=== PATIENT | female | born 1955 | race Caucasian/White ===

== ENCOUNTER 2021-04-24 16:47 | Outpatient (CLI) | payer OTHER, SELFPAY ==
--- NOTE | ~2021-04-24 | DEXA_ITS ---
Bone Density Report Name: Joanna Magdaleno Age: 65 Sex: Female Ethnicity: White Date of : 1955 Indication: postmenopausal; parental hip fracture; height loss; prior fracture; hysterectomy; Referring Provider: Tamara Reeves Study: Bone densitometry was performed. Exam Date: April 24, 2021 Accession number: [id number] Bone Density: Region BMD T-score Z-score Classification AP Spine (L1-L4) 0.992 -0.5 1.3 Normal Femoral Neck (Left) 0.731 -1.1 0.4 Osteopenia Total Hip (Left) 0.887 -0.5 0.8 Normal Total Hip Bilateral Avg 0.875 -0.6 0.7 Normal Femoral Neck (Right) 0.675 -1.6 -0.1 Osteopenia Total Hip (Right) 0.861 -0.7 0.5 Normal World Health Organization criteria for BMD impression classify patients as: Normal (T-score at or above -1.0), Osteopenia (T-score between -1.0 and -2.5), or Osteoporosis (T-score at or below -2.5). 10-year Fracture Risk(1): Major Osteoporotic Fracture 27% Hip Fracture 1.6% Reported Risk Factors: [place] (), Neck BMD=0.675, BMI=27.4, previous fracture, parental fracture (1) FRAX(R) Version 3.08. Fracture probability calculated for an untreated patient. Fracture probability may be lower if the patient has received treatment. Clinical Information Provided by Patient: Has had a low trauma fracture Parent has had a hip fracture Has used the following medications: HRT (i.e. estrogen/hormone therapy), Vitamin D, Calcium Has the following medical conditions: Hysterectomy Patient maximum height was 69 Menopause Age: 40 Onset of menses at age 15 Number of children 3 Impression: The patient has low bone mass, based on the Right Femoral Neck T-score. The patient has an estimated ten-year risk of hip fracture of 1.6% and an estimated ten-year risk of major fracture of 27%, based on the WHO FRAX algorithm. The patient has risk factors, including: parental hip fracture, previous fracture. Discussion: BONE DENSITY IS LOW AT ONE OR MORE SKELETAL SITES. THE PATIENT'S BMD AND CLINICAL RISK FACTORS CONTRIBUTE TO THIS PATIENT'S INCREASED RISK OF FRACTURE. This patient's lowest T-score is low at one or more skeletal sites. It meets the World Health Organization's (WHO) criteria for ?low bone mass? (T-score between -1.0 and -2.5). The patient's 10-year risk of a major osteoporotic fracture as calculated by FRAX exceeds the threshold where pharmacological therapy is recommended by the National Osteoporosis Foundation (NOF). However, all treatment decisions require clinical judgment and consideration of individual patient factors, including patient preferences, comorbidities, previous drug use, risk factors not captured in the FRAX model (e.g., frailty, falls, vitamin D deficiency, increased bone turnover, interval significant decline in bone density) and possible under or over
== END 2021-04-24 16:48 | disposition home or self-care (01) ==
LOC: ANHIMG 16:52
PROVIDERS: PCP Internal Medicine; Visit Provider Nurse Practitioner
DX: Z13.820 Encounter for screening for osteoporosis (principal); M85.851 Other specified disorders of bone density and structure, right thigh; M85.852 Other specified disorders of bone density and structure, left thigh
CPT/HCPCS: 77080

== ENCOUNTER 2021-12-03 16:47 | Outpatient (CLI) | payer OTHER, SELFPAY ==
--- NOTE | ~2021-12-03 | MM_ITS ---
EXAMINATION: MM screening dacia BI w landry HISTORY: Screening TECHNIQUE: Craniocaudal and mediolateral oblique 3-D tomosynthesis images were obtained and synthetic 2-D images were generated. CAD analysis was submitted and interpreted. COMPARISON: No prior mammogram is available for comparison at this institution. BREAST PARENCHYMAL COMPOSITION: There are scattered areas of fibroglandular density. FINDINGS: There is no evidence of suspicious mass, calcification, or architectural distortion to sugg est malignancy in either breast. There has been no suspicious interval change. IMPRESSION: 1. No mammographic evidence of malignancy. 2. Recommend routine screening mammography in one year. BI-RADS Category 1: Negative Reviewed, dictated and finalized at location A.
== END 2021-12-03 16:48 | disposition home or self-care (01) ==
LOC: ANHIMG 16:49
PROVIDERS: PCP Internal Medicine; Visit Provider Obstetrics & Gynecology
DX: Z12.31 Encounter for screening mammogram for malignant neoplasm of breast (principal)
CPT/HCPCS: 77063; 77067

== ENCOUNTER 2022-04-09 15:08 | Outpatient (CLI) | payer OTHER, SELFPAY ==
[2022-04-09 18:54] LABS: Basophils Absolute Auto 0.1 K/mm3 (0.0-0.1); Basophils Percent Auto 1.2 % (0.2-1.2); Eosinophils Absolute Auto 0.1 K/mm3 (0-0.3); Eosinophils Percent Auto 2.4 % (0-4.4); Hematocrit 42.7 % (37.0-47.0); Hemoglobin 13.6 g/dL (12.0-15.0); Immature Granulocyte Absolute 0.03 K/mm3 (0.00-0.031); Immature Granulocyte Percent A 0.5 % (0-0.5); Lymphocytes Percent Auto 32.2 % (18.3-44.2); Mean Corpuscular HGB Conc 31.9 g/dl (32-36); Mean Corpuscular Hemoglobin 30.7 pg (26-34); Mean Corpuscular Volume 96.4 fl (80-100); Mean Platelet Volume 10.2 fl (7.4-10.4); Monocytes Absolute Auto 0.6 K/mm3 (0.1-0.6); Monocytes Percent Auto 9.3 % (2.6-8.5); Neutrophils Absolute Auto 3.2 K/mm3 (1.3-6.7); Neutrophils Percent Auto 54.4 % (45.5-73.1); Platelet Count Result 320 k/mm3 (150-375); Red Blood Count 4.43 M/mm3 (4.2-5.4); Red Cell Distribution Width 13.8 % (11.5-14.5); White Blood Count 5.9 K/mm3 (4.5-10.0)
[2022-04-09 20:47] LABS: Vitamin D 25 Hydroxy 93.2 ng/mL
[2022-04-09 20:57] LABS: Alanine Aminotransferase 13 U/L (6-35); Albumin Level 3.8 g/dL (3.5-5.1); Alkaline Phosphatase 76 U/L (38-126); Anion Gap 7 mmol/L (8-16); Aspartate Amino Transferase 27 U/L (14-36); Bilirubin,Total 0.2 mg/dL (0.2-1.3); Blood Urea Nitrogen 13 mg/dL (7-17); Calcium 9.2 mg/dL (8.4-10.2); Carbon Dioxide 27 mmol/L (22-30); Chloride 104 mmol/L (98-107); Cholesterol 186 mg/dL (0-200); Estimated Glomerular Filt Rate > 60; Glucose 103 mg/dL (65-110); HDL Direct 56 mg/dL; Sodium 138 mmol/L (137-145); Triglycerides 196 mg/dL (<150)
[2022-04-09 21:19] LABS: LDL Cholesterol Direct 86 mg/dL
== END 2022-04-09 15:09 | disposition home or self-care (01) ==
PROVIDERS: PCP Internal Medicine; Visit Provider Nurse Practitioner
DX: Z13.220 Encounter for screening for lipoid disorders (principal); Z13.29 Encounter for screening for other suspected endocrine disorder; E55.9 Vitamin D deficiency, unspecified
CPT/HCPCS: 36415; 80053; 80061; 82306; 85025

== ENCOUNTER 2022-05-15 15:44 | Emergency (ER) | payer OTHER, SELFPAY ==
--- NOTE | 2022-05-15 15:47 | ED.CHESTPAIN ---
HPI - Chest Pain General Stated Complaint: rib injury Time Seen by Provider: 05/15/22 15:46 Source: patient Mode of arrival: ambulatory Limitations: no limitations History of Present Illness HPI narrative: Ms. Magdaleno is a 66-year-old female patient is presenting to the clinic today with complaints of rib pain that began this morning. She reports last week she was laying on the ground hanging over a hole fixing a alterations sewer pipe and developed some pain in the right lower anterior rib. 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 She has not taken anything for pain. Related Data Home Medications Medication Instructions Recorded Confirmed cholecalciferol (vitamin D3) 50 50 mcg PO DAILY 03/26/21 04/15/22 mcg (2,000 unit) capsule [id number]-mrt-pjarr ac 400 tablet PO 03/26/21 04/15/22 mcg-calcium carb 500 mg-vit K1 20 mcg tablet (Women's 50 Plus Multivitamin) Allergies Allergy/AdvReac Type Severity Reaction Status Date / Time adhesive tape Allergy Unknown Verified 04/15/22 10:12 bacitracin Allergy Unknown Verified 04/15/22 10:12 [From Neosporin ([id number])] iodine povacrylex Allergy Unknown Verified 04/15/22 10:12 [From DuraPrep] isopropyl alcohol Allergy Unknown Verified 04/15/22 10:12 [From DuraPrep] neomycin Allergy Unknown Verified 04/15/22 10:12 [From Neosporin ([id number])] polymyxin B Allergy Unknown Verified 04/15/22 10:12 [From Neosporin ([id number]-jkl-[id number])] chloraprep Allergy Unknown Blister Uncoded 04/15/22 10:12 Review of Systems Review of Systems: Pertinent positives per HPI. Patient denies any fever, chills, rash, headache, visual changes, dizziness, cough, runny nose, sore throat, shortness of breath, chest pain, palpitations, nausea, vomiting, diarrhea, constipation, abdominal pain, or any urinary issues. FORMERLY [facility], [facility] Past Medical History Medical History Allergies Bicuspid aortic valve Chronic GERD History of cardiac arrhythmia History of stress test Prior to 2010 Migraine Surgical History Surgical History H/O repair of right rotator cuff (~2018) History of conization of cervix History of hernia repair (~2017) History of LAVH (~1994) Family History Family History Sibling Family history of blood dyscrasia Father Family history of malignant neoplasm Tremor Grandparent Tremor Social History Social History Smoking status: Never smoker Alcohol intake: never Substance use: never Substance use type: does not use 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 There is no relevant family history pertinent to the patient complaint. Exam Narrative: General: Well-developed, well nourished, in no apparent distress Head: Normocephalic, atraumatic. Chest: Even rise and fall of chest wall with respirations, no bruising or swelling, tenderness to palpation over the right lower anterior rib Cardio: Regular rate and rhythm, s1 and s2 normal, no murmur appreciated. Resp: Clear to auscultation bilaterally, no rhonchi, rales, wheezing or rubs. Musculoskeletal: No deformity, non-tender to palpation, grossly normal range of motion, muscle strength strong and equal, peripheral pulse strong, no edema, no cyanosis, normal gait and station Course Course Emergency Course: Portions of this record may have been created with voice recognition software. Level of Care: Express Care Visit Vital Signs Vital signs: Vital
[2022-05-15 15:50] VITALS: BP 130/53; PULSE 68; RESP 16; TEMP 37.1; O2SAT 98
== END 2022-05-15 16:11 | disposition home or self-care (01) ==
PROVIDERS: Emergency Provider Nurse Practitioner Family; PCP Internal Medicine
DX: R07.81 Pleurodynia (principal); K21.9 Gastro-esophageal reflux disease without esophagitis
CPT/HCPCS: 99212; G0463

== ENCOUNTER 2022-05-22 12:30 | Outpatient (RCR) | payer OTHER, SELFPAY ==
--- NOTE | 2022-04-24 14:56 | PTOPEVAL1 ---
Evaluation Information Assessment Status Evaluation Diagnosis L knee and L hip pain Subjective Information Pt states she has had hip pain for a long time and has just started having some knee pain as well, for the last couple of month. She received injections in both and was given some relief. She reports most of her hip pain at night. Pt states she can walk no longer than 15 mins before she gets an increase in pain to where she needs to sit down. Reported Pain Level Pain Score 1,0: Self Report Assessment PT Clinical Summary Joanna presents to therapy today for her initial evaluation with a diagnosis of R knee and hip pain . Today she demonstrates tightness of her hamstring, piriformis, hip flexors, and ITB klever. She also demonstrates mild hip weakness klever. She has increased tenderness to palpation in her distal ITB and piriformis klever. Skilled physical therapy services are indicated to address the deficits noted above, for pain management, to improve mobility, and to return to baseline function. Plan of Care Interventions Gait Training,Manual Therapy,Neuro Re-education, Patient/Caregiver Educati,Therapeutic Activities, Therapeutic Exercise PT Services Indicated Yes Treatment Frequency and 1/wk for 4 wks Duration These treatments will address the objective and functional deficits as defined above. The patient will be advanced safely and appropriately in order for the patient to progress towards his/her prior level of function. Additional exercises will be introduced and as well as a comprehensive home exercise program upon discharge, if needed, ?to ensure carryover of functional gains achieved in the clinic. This treatment plan has been reviewed and agreement upon by the patient.
--- NOTE | 2022-05-22 13:25 | PTOPDC ---
Assessment and note entered by Rosmery Cronin, PT, DPT Evaluation Information Assessment Status Progress Diagnosis L hip and knee pain Subjective Information Pt states she feels like her progress is very sore . She states she has seen a little bit of improvement but she is unsure if this is from her injection or therapy. Reported Pain Level Pain Score 0,0: Self Report Assessment PT Clinical Summary Joanna presents to therapy today for her progress report following 3 visits of skilled therapy and participation in an HEP to treat her L hip and knee pain. Today she reports no pain at rest and no pain in the last week. He has improved her hip strength as well as hamstring and hip flexor flexibility. She reports no limitations in laying on her side nor with her standing tolerance. She met all of her therapy goals and no longer requires skilled therapy services. She will be discharged at this time. Plan of Care PT Services Indicated No Treatment Frequency and to be d/c'ed Duration
== END 2022-05-28 10:44 | disposition home or self-care (01) ==
LOC: ANHGOSHPT 12:30
PROVIDERS: PCP Internal Medicine; Visit Provider Physician Assistant Surgical
DX: M25.562 Pain in left knee (principal); M70.60 Trochanteric bursitis, unspecified hip
CPT/HCPCS: 97110; 97112; 97140; 97161; 97530

== ENCOUNTER 2022-09-03 14:16 | Outpatient (CLI) | payer OTHER, SELFPAY | END 2022-09-03 14:17 | disposition home or self-care (01) | PROVIDERS: PCP Internal Medicine; Visit Provider Internal Medicine | DX: H90.3 Sensorineural hearing loss, bilateral (principal) | CPT/HCPCS: 92557; 92567 ==

== ENCOUNTER 2022-12-27 15:14 | Emergency (ER) | payer MEDICARE, SELFPAY ==
[2022-12-27 15:26] VITALS: BP 132/84; PULSE 78; RESP 16; TEMP 36.8; O2SAT 99
[2022-12-27] MEDS: LIDOCAINE, EPINEPHRINE, TETRACAINE VISCOUS SOLN 3 ML TOPICAL (16:12)
--- NOTE | 2022-12-27 16:24 | ED.GENADULT ---
HPI - General Adult General Chief complaint: Wound/Laceration Stated complaint: lac Time Seen by Provider: 12/27/22 15:42 History of Present Illness HPI narrative: Patient is a 67-year-old female who is right-handed here for evaluation of laceration to left second digit. Patient states that she was using a metal rolling blade while sewing when she lost control of the object and it sliced her finger. Has had pain and swelling since. No numbness, tingling. tetanus is UTD. Related Data Home Medications Medication Instructions Recorded Confirmed cholecalciferol (vitamin D3) 50 50 mcg PO DAILY 03/26/21 06/15/22 mcg (2,000 unit) capsule estradiol 1 mg tablet 0.5 mg PO DAILY 06/15/22 06/15/22 Allergies Allergy/AdvReac Type Severity Reaction Status Date / Time adhesive tape Allergy Unknown Verified 12/27/22 15:26 bacitracin Allergy Unknown Verified 12/27/22 15:26 [From Neosporin ([id number])] iodine povacrylex Allergy Unknown Verified 12/27/22 15:26 [From DuraPrep] isopropyl alcohol Allergy Unknown Verified 12/27/22 15:26 [From DuraPrep] neomycin Allergy Unknown Verified 12/27/22 15:26 [From Neosporin ([id number]-bck-mucej)] polymyxin B Allergy Unknown Verified 12/27/22 15:26 [From Neosporin ([id number]-[id number])] chloraprep Allergy Unknown Blister Uncoded 06/15/22 13:24 Review of Systems Review of Systems: Gen.: Denies fevers or chills Eyes: Denies eye pain or visual change ENT: Denies congestion Respiratory: Denies shortness of breath or cough CV: Denies chest pain or palpitations GI: Denies abdominal pain nausea, emesis or diarrhea denies burning, urgency, frequency or hematuria Musculoskeletal: Denies back pain or muscle pain Neuro: Denies numbness, tingling, weakness or focal weakness Skin: Reports laceration to left second digit Except as documented, all other systems reviewed and negative [facility] Past Medical History Medical History Allergies Bicuspid aortic valve Chronic GERD History of cardiac arrhythmia History of stress test Prior to 2009 Migraine Surgical History Surgical History H/O repair of right rotator cuff (~2018) History of conization of cervix History of hernia repair (~2017) History of LAVH (~1994) Family History Family History Sibling Family history of blood dyscrasia Father Family history of malignant neoplasm Tremor Grandparent Tremor Social History Social History Smoking status: Never smoker Alcohol intake: never Substance use: never Substance use type: does not use Lack of Transportation: No Lack of Food: Never True Current Housing: I Have Housing Concerned About Future Housing: No Difficulty Paying Gas/Electric Bills: No Difficulty Paying for Meds: No Currently Unemployed: No Education: Associate Degree Difficulty w/ Childcare or Family Care: No Living arrangements: with family Occupation/Education: occupation 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 AOx4, moves all extremities without apparent difficulty or weakness, follows commands MSK: FROM in left second finger. Skin: there is a 1.5 cm linear laceration to the left second fingertip along the radial aspect with active bleeding. Psych: Normal mood/affect, insight/judgement good, adequate fund of knowledge,
== END 2022-12-27 17:32 | disposition home or self-care (01) ==
PROVIDERS: Emergency Provider Physician Assistant; PCP Internal Medicine
DX: S61.211A Laceration without foreign body of left index finger without damage to nail, initial encounter (principal); K21.9 Gastro-esophageal reflux disease without esophagitis; W27.8XXA Contact with other nonpowered hand tool, initial encounter; Y93.D2 Activity, sewing
CPT/HCPCS: 12001; 99282

== ENCOUNTER 2023-04-12 11:33 | Outpatient (CLI) | payer MEDICARE, SELFPAY ==
[2023-04-12 18:07] LABS: Basophils Absolute Auto 0.1 K/mm3 (0.0-0.1); Basophils Percent Auto 1.2 % (0.2-1.2); Eosinophils Absolute Auto 0.1 K/mm3 (0-0.3); Eosinophils Percent Auto 2.6 % (0-4.4); Hematocrit 44.1 % (37.0-47.0); Hemoglobin 14.1 g/dL (12.0-15.0); Immature Granulocyte Absolute 0.01 K/mm3 (0.00-0.031); Immature Granulocyte Percent A 0.2 % (0-0.5); Lymphocytes Absolute Auto 1.87 K/mm3 (0.9-3.2); Lymphocytes Percent Auto 37.1 % (18.3-44.2); Mean Corpuscular Hemoglobin 30.8 pg (26-34); Mean Corpuscular Volume 96.3 fl (80-100); Mean Platelet Volume 10.3 fl (7.4-10.4); Monocytes Absolute Auto 0.5 K/mm3 (0.1-0.6); Monocytes Percent Auto 9.3 % (2.6-8.5); Neutrophils Absolute Auto 2.5 K/mm3 (1.3-6.7); Neutrophils Percent Auto 49.6 % (45.5-73.1); Platelet Count Result 291 k/mm3 (150-375); Red Blood Count 4.58 M/mm3 (4.2-5.4); Red Cell Distribution Width 13.9 % (11.5-14.5)
[2023-04-12 18:39] LABS: Alanine Aminotransferase 20 U/L (6-35); Albumin Level 4.4 g/dL (3.5-5.1); Alkaline Phosphatase 81 U/L (38-126); Anion Gap 3 mmol/L (8-16); Aspartate Amino Transferase 40 U/L (14-36); Bilirubin,Total 0.6 mg/dL (0.2-1.3); Blood Urea Nitrogen 12 mg/dL (7-17); Calcium 9.6 mg/dL (8.4-10.2); Carbon Dioxide 32 mmol/L (22-30); Chloride 103 mmol/L (98-107); Cholesterol 232 mg/dL (0-200); Estimated Glomerular Filt Rate > 60; Glucose 98 mg/dL (65-110); HDL Direct 56 mg/dL; Potassium 4.7 mmol/L (3.4-5.0); Sodium 138 mmol/L (137-145); Triglycerides 140 mg/dL (<150)
[2023-04-12 18:50] LABS: LDL Cholesterol Direct 118 mg/dL
[2023-04-12 19:00] LABS: Vitamin D 25 Hydroxy 68.7 ng/mL
== END 2023-04-12 11:34 | disposition home or self-care (01) ==
LOC: ANHGOSHLAB 11:35
PROVIDERS: PCP Internal Medicine; Visit Provider Nurse Practitioner
DX: E55.9 Vitamin D deficiency, unspecified (principal); Z13.29 Encounter for screening for other suspected endocrine disorder; Z13.220 Encounter for screening for lipoid disorders
CPT/HCPCS: 36415; 80053; 80061; 82306; 85025

== ENCOUNTER 2023-08-09 13:45 | Outpatient (CLI) | payer MEDICARE, SELFPAY ==
--- NOTE | ~2023-08-09 | MM_ITS ---
EXAMINATION: MM screening dacia BI w landry HISTORY: Screening mammogram TECHNIQUE: Craniocaudal and mediolateral oblique 3-D tomosynthesis images were obtained and synthetic 2-D images were generated. CAD analysis was submitted and interpreted. COMPARISON: December 03, 2021 bilateral screening mammogram BREAST PARENCHYMAL COMPOSITION: There are scattered areas of fibroglandular density. FINDINGS: There is no evidence of suspicious mass, calcification, or architectural distortion to sugg est malignancy in either breast. There has been no suspicious interval change. IMPRESSION: 1. No mammographic evidence of malignancy. 2. Recommend routine screening mammography in one year. BI-RADS Category 1: Negative Reviewed, dictated and finalized at location A. [employer] [employer]
--- NOTE | ~2023-08-09 | DEXA_ITS ---
Bone Density Report Name: SHANON MONROE Age: 68 Sex: Female Ethnicity: White Date of : 1955 Indication: postmenopausal; screening for osteoporosis; parental hip fracture; height loss; prior fracture; hysterectomy; Referring Provider: VALERIE MARTINEZ Study: Bone densitometry was performed. Exam Date: August 09, 2023 Accession number: [id number] Bone Density: Region BMD T-score Z-score Classification AP Spine(L1-L4) 0.956 -0.8 1.1 Normal Femoral Neck (Left) 0.734 -1.0 0.6 Normal Total Hip (Left) 0.804 -1.1 0.2 Osteopenia Femoral Neck (Right) 0.632 -2.0 -0.3 Osteopenia Total Hip (Right) 0.812 -1.1 0.3 Osteopenia Total Hip Mean 0.808 -1.1 0.3 Osteopenia World Health Organization criteria for BMD impression classify patients as: Normal (T-score at or above -1.0), Osteopenia (T-score between -1.0 and -2.5), or Osteoporosis (T-score at or below -2.5). 10-year Fracture Risk(1): Major Osteoporotic Fracture 29% Hip Fracture 3.9% Reported Risk Factors: [place] (), Neck BMD=0.632, BMI=28.2, previous fracture, parental fracture (1) FRAX(R) Version 3.08. Fracture probability calculated for an untreated patient. Fracture probability may be lower if the patient has received treatment. Previous Exams: Region Exam Age BMD T-score BMD Change BMD Change Date g/cm2 vs Baseline vs Previous AP Spine (L1-L4) 08/09/2023 68 0.956 -0.8 -0.036 (-3.6%) -0.036 (-3.6%) 04/24/2021 65 0.992 -0.5 Total Hip(Left) 08/09/2023 68 0.804 -1.1 -0.082 (-9.3%) -0.082 (-9.3%) 04/24/2021 65 0.887 -0.5 Total Hip(Right) 08/09/2023 68 0.812 -1.1 -0.048 (-5.6%) -0.048 (-5.6%) 04/24/2021 65 0.861 -0.7 *Denotes significance at 95% confidence level, LSC for AP Spine = 0.022 g/cm2, LSC for Total Hip = 0.027 g/cm2 # Denotes dissimilar scan types or analysis methods Clinical Information Provided by Patient: Has had a low trauma fracture Parent has had a hip fracture Has used the following medications: Vitamin D, Calcium Has the following medical conditions: Hysterectomy Patient maximum height was 69 Menopause Age: 40 Onset of menses at age 15 Number of children 3 Impression: The patient has low bone mass, based on the Right Femoral Neck T-score. The patient has an estimated ten-year risk of hip fracture of 3.9% and an estimated ten-year risk of major fracture of 29%, based on the WHO FRAX algorithm. The patient has ris
== END 2023-08-09 13:46 | disposition home or self-care (01) ==
PROVIDERS: PCP Internal Medicine; Visit Provider Nurse Practitioner
DX: Z12.31 Encounter for screening mammogram for malignant neoplasm of breast (principal); Z78.0 Asymptomatic menopausal state; M85.852 Other specified disorders of bone density and structure, left thigh; M85.851 Other specified disorders of bone density and structure, right thigh
CPT/HCPCS: 77063; 77067; 77080

== ENCOUNTER 2024-04-17 11:29 | Outpatient (CLI) | payer MEDICARE, SELFPAY ==
[2024-04-17 14:06] LABS: Basophils Absolute Auto 0.1 K/mm3 (0.0-0.1); Basophils Percent Auto 0.9 % (0.2-1.2); Eosinophils Absolute Auto 0.1 K/mm3 (0-0.3); Eosinophils Percent Auto 2.1 % (0-4.4); Hematocrit 45.8 % (37.0-47.0); Hemoglobin 14.4 g/dL (12.0-15.0); Immature Granulocyte Absolute 0.03 K/mm3 (0.00-0.031); Immature Granulocyte Percent A 0.5 % (0-0.5); Lymphocytes Absolute Auto 1.75 K/mm3 (0.9-3.2); Lymphocytes Percent Auto 30.6 % (18.3-44.2); Mean Corpuscular HGB Conc 31.4 g/dl (32-36); Mean Corpuscular Hemoglobin 30.3 pg (26-34); Mean Corpuscular Volume 96.4 fl (80-100); Mean Platelet Volume 9.9 fl (7.4-10.4); Monocytes Absolute Auto 0.6 K/mm3 (0.1-0.6); Monocytes Percent Auto 10.1 % (2.6-8.5); Neutrophils Absolute Auto 3.2 K/mm3 (1.3-6.7); Neutrophils Percent Auto 55.8 % (45.5-73.1); Platelet Count Result 288 k/mm3 (150-375); Red Blood Count 4.75 M/mm3 (4.2-5.4); Red Cell Distribution Width 14.6 % (11.5-14.5); White Blood Count 5.7 K/mm3 (4.5-10.0)
[2024-04-17 14:49] LABS: Alanine Aminotransferase 15 U/L (6-35); Albumin Level 4.4 g/dL (3.5-5.1); Alkaline Phosphatase 88 U/L (38-126); Anion Gap 7 mmol/L (4-12); Aspartate Amino Transferase 48 U/L (14-36); Bilirubin,Total 0.7 mg/dL (0.2-1.3); Blood Urea Nitrogen 17 mg/dL (7-17); Calcium 10.3 mg/dL (8.4-10.2); Carbon Dioxide 30 mmol/L (22-30); Chloride 101 mmol/L (98-107); Cholesterol 209 mg/dL (0-200); Estimated Glomerular Filt Rate > 60; Glucose 100 mg/dL (65-110); HDL Direct 64 mg/dL; Potassium 4.5 mmol/L (3.4-5.0); Sodium 138 mmol/L (137-145); Triglycerides 111 mg/dL (<150)
[2024-04-17 15:00] LABS: LDL Cholesterol Direct 97 mg/dL
[2024-04-17 15:05] LABS: Vitamin D 25 Hydroxy 66.3 ng/mL
== END 2024-04-17 11:30 | disposition home or self-care (01) ==
LOC: ANHGOSHLAB 11:31
PROVIDERS: PCP Internal Medicine; Visit Provider Nurse Practitioner
DX: E55.9 Vitamin D deficiency, unspecified (principal); E78.5 Hyperlipidemia, unspecified; Z13.29 Encounter for screening for other suspected endocrine disorder; Z13.220 Encounter for screening for lipoid disorders
CPT/HCPCS: 36415; 80053; 80061; 82306; 85025

== ENCOUNTER 2024-06-13 15:40 | Outpatient (CLI) | payer MEDICARE, SELFPAY ==
--- NOTE | ~2024-06-13 | XR_ITS ---
XR knee RT min 4V Ordering provider: Yunile Sommers MD History: . No injury bilateral knee pain for a few years . Comparison: None. FINDINGS: BONES: No acute fracture or dislocation. JOINT SPACES: Normal. Marginal osteophytes seen in the patella is noted SOFT TISSUES: Normal. IMPRESSION: No acute osseous abnormality right knee. Mild Osteoarthritic changes. Reviewed, dictated and finalized at location A.
--- NOTE | ~2024-06-13 | XR_ITS ---
XR knee LT min 4V 06/13/2024 15:53 Indication: Left knee pain Procedure: 4 views left knee Comparison: No prior studies for comparison. Findings: No fracture, subluxation or dislocation. There is mild tricompartment osteoarthritis. No jaimee int effusion. Impression: 1: Mild tricompartment osteoarthritis. Reviewed, dictated and finalized at location B. Impression: 1: Mild tricompartment osteoarthritis.
== END 2024-06-13 15:41 | disposition home or self-care (01) ==
LOC: GOSHIMG 15:43
PROVIDERS: PCP Orthopaedic Surgery; Visit Provider Orthopaedic Surgery
DX: M17.0 Bilateral primary osteoarthritis of knee (principal)
CPT/HCPCS: 73564

== ENCOUNTER 2024-11-30 14:46 | Outpatient (CLI) | payer MEDICARE, SELFPAY ==
--- NOTE | ~2024-11-30 | CT_ITS ---
EXAMINATION: CT LE LT wo con DATE: 11/30/2024 15:23 INDICATION: Left knee osteoarthritis for preoperative planning TECHNIQUE: High resolution computed tomography (CT) of the left lower extremity from the hip through the ankle was performed without intravenous contrast. Additional sagittal and coronal reconstructions were performed. Dose Manny The dose-length product was 1920.52 mGy-cm. COMPARISON: Left knee radiographs dated 09/25/2024 FINDINGS: Bone alignment is normal. No fracture. Mild polyarticular osteoarthritis at the left hip and at multi ple joints in the left foot. Tricompartmental osteoarthritis at the left knee which appears mild on t he current nonweightbearing study but with moderate joint space narrowing evident in the lateral comp artment on the prior weightbearing radiographs. There is a small left knee joint effusion. Mild subcu taneous varicosities along the anteromedial aspect of the distal thigh and proximal calf. There are f ew sigmoid diverticula without adjacent from trace stranding to suggest diverticulitis. The uterus is not identified and has likely been surgically resected with suture line and surgical clips in the le ft hemipelvis. No pathologically enlarged left pelvic or inguinal lymphadenopathy. IMPRESSION: 1. Tricompartmental osteoarthritis the left knee with moderate joint space narrowing at the lateral c ompartment on prior weightbearing radiographs. Reviewed, dictated and finalized at location B. IMPRESSION: 1. Tricompartmental osteoarthritis the left knee with moderate joint space narr owing at the lateral compartment on prior weightbearing radiographs.
--- OUTSIDE RECORDS SUMMARY | 2024-11-30 15:16 | XMS_ITS | Encounter Summary ---
Author Organization [facility] Address [address] [place] [address] Care Team Providers Care Retail Sales Merchandiser Development Name Role Phone Unavailable Primary Care Provider Unavailabl e Encounter Details Date Type Department Care Team (Late st Contact Info) Description 04/08/2023 Lab Requisition [facility] - [facility] Lab [address] [place] [address] Yolis Franco DO [address] [facility] [address] [facility] [address] [place] [address] Social History Tobacco Use Types Packs/Day Years Used Date Smoking Tobacco: Never Assessed Sex and Gender Information Value Date Recorded Sex Assigned at Not on file Gender Identity Not on file Sexual Orientation Not on file documented as of this encounter Plan of Treatment Not on file documented as of this encounter Procedures Procedure Name Priority Date/Time Associated Diagnosis Comments DERMATOPATHOLOGY Routine 04/08/2023 4:26 PM CDT documented in this encounter Results * DERMATOPATHOLOGY (04/08/2023 4:26 PM CDT) Case Report Dermatopathology Report Case: [id number] Authorizing Provider: Yolis Franco DO Collected: 04/08/2023 04:26 PM Ordering Location: [facility] Received: 04/09/2023 03:26 PM Pathologist: Shira Patel MD Specimen: Skin, right back 12:52 PM CDT DERMATOPATHOLOGY LABORATORY Final Diagnosis Specimen A. SKIN, right back: BASAL CELL CARCINOMA (C44.519) NOT PRESENT AT MARGIN DERMAL SCAR (L90.5) 12:52 PM CDT DERMATOPATHOLOGY LABORATORY Clinical History R/O: BCC, Biopsy Proven. Please Check Margins. 3 12:52 PM CDT DERMATOPATHOLOGY LABORATORY Gross Description Specimen A: Received is one formalin filled container labeled with the patient's name and designated right back. The specimen consists of a non-oriented ellipse of skin measuring 24m45y9 mm. Also, there is a lesion measuring 4x5mm. The margin is inked green. The 12 o'clock and 6 o'clock tips are submitted in cassette 1. The remainder of the ellipse is serially sectioned and submitted in cassette 2 - 3. Jar 0. 3 12:52 PM CDT DERMATOPATHOLOGY LABORATORY Microscopic Description Specimen A. SKIN, right back: Within the dermis there are aggregates of basaloid cells with a high nuclear to cytoplasmic ratio and peripheral palisading. This lesion is not present at the margin of the specimen. There are fibroblasts and collagen bundles oriented parallel to the skin surface with elongated blood vessels, some of which are oriented perpendicular to the skin surface. 3 12:52 PM CDT DERMATOPATHOLOGY LABORATORY Disclaimer An external and internal positive and negative controls are appropriate for the histochemical, immunohistochemical and immunofluorescence stain(s) in this case (if any), except where stated explicitly. The performance characteristics of the stain(s) cited in this report were developed and its performance characteristic determined by the Dermatopathology Laboratory at [facility], directed by Dr. Emilee De León. These tests need not be, and therefore are not, approved by the [place] Food and Drug Administration. The tests are used for clinical purposes. Billing Codes Specimen Charges Stain Charges 61525 1 3 12:52 PM CDT DERMATOPATHOLOGY LABORATORY Embedded Images 3 12:52 PM CDT DERMATOPATHOLOGY LABORATORY Pathology/Cytolo gy TISSUE SPECIMEN FROM SKIN / Unknown 04/08/2023 4:26 PM CDT 04/09/2023 3:26 PM CDT Yolis Franco DO LAB - PATHOLOGY/C YTOLOGY ORDERABLES DERMATOPATHOLOGY LABORATORY [facility] - Department of Dermatology [address], [address] [phone] documented in this encounter Visit Diagnoses Not on filedocumented in this encounter
--- OUTSIDE RECORDS SUMMARY | 2024-11-30 15:16 | XMS_ITS | Clinical Summary ---
Author Organization [facility] Address [address] [place] [address] Care Team Providers Care Director Drug Safety Name Role Phone Lauri Menchaca DO Primary Care Provider [phone] Allergies Active Allergy Reactions Criticality Noted Date Comments Adhesive Tape-Silicones Blisters High 06/18/2020 Bacitracin Blisters High Chlorhexidine Rash Medium 05/19/2017 Chlorophenothane Rash Medium Iodine Povacry-Iso Alcohol Rash Medium 8 Neomycin Blisters High Polymyxin B Blisters High Medications ZOLMitriptan (ZOMIG) 2.5 mg tablet TAKE ONE TABLET BY MOUTH ONCE NEEDED FOR MIGRAINE FOR UP TO ONE DOSE 6 tablet 11 06/24/2020 Active estradioL (ESTRACE) 2 mg tablet Take 2 mg by mouth daily 07/07/2021 Active alendronate (FOSAMAX) 70 mg tablet Take 1 tablet (70 mg total) by mouth every 7 days 08/31/2023 Active calcium carbonate-vitam in D3 (Calcium 500 + D) 1,250 mg (500 mg elemental)-400 unit tablet Take by mouth Acti ve atenoloL (TENORMIN) 25 mg tablet TAKE 1 TABLET (25 MG TOTAL) BY MOUTH DAILY. 90 tablet 2 02/28/2024 Active Tiadylt ER 180 mg 24 hr capsule TAKE 1 CAPSULE BY MOUTH EVERY DAY 90 capsule 2 09/11/2024 Active Active Problems Problem Noted Date Diagnosed Date Hypercholesterolemia 01/21/2022 Chest pressure 01/21/2022 Palpitations 07/14/2021 Atrial premature beats 07/14/2021 Nonrheumatic mitral valve regurgitation 07/14/20 Typical atrial flutter 07/14/2021 Ventricular premature beats 07/14/2021 Bicuspid aortic valve 11/05/2020 Need for subacute bacterial endocarditis prophyl axis 11/05/2020 Superior glenoid labrum lesion of right shoulder 11/25/2018 Overview (11/25/2018): Added automatically from request for surgery [id number] Preoperative cardiovascular examination 11/18/19 19 Assessment & Plan (11/17/2018 9:51 AM CDT): Pt was advised to continue current therapy and medications for chronic conditions as previously as advised. Continue with healthy dietary management as well. Pt offered no additional complaints today in office. Preoperative medical clearance: Pt is medically stable and aware there are risk associated with surgery and anesthesia. He states the surgeon has reviewed these risk in detail with patient, and wishes to proceed with surgery. They are medically cleared for surgery after thorough review of previous labs, including urine culture completed in the last month and EKG that was completed office today. Pt was instructed to contact the office with absolutely any changes prior to and post surgery. We will see them back here as scheduled, or certainly sooner as needed. Right inguinal hernia 11/10/2017 Overview (11/10/2017): Added automatically from request for surgery [id number] PSVT (paroxysmal supraventricular tachycardia) ( [facility]) 04/13/2017 Assessment & Plan (11/17/2018 9:53 AM CDT): Asymptomatic. SB noted with EKG, clinical examination provided a rate of 62. Stable on atenolol. Cnt. Current dosing follow-up as needed regarding condition Chronic migraine without aur a without status migrainosus, not intractable 04/13/2017 Assessment & Plan (11/17/2018 9:53 AM CDT): Asymptomatic. Cnt. P.r.n. Use of Zomig for migraines. F/U in our office with any non retractable migraines or migrainous changes Stress incontinence in female 10/27/2012 Overview (11/26/2016): Urinary, incontinence, stress female Resolved Problems Problem Noted Date Diagnosed Date Resolved Date Arthritis of right acromioclavicular joint 11/25/2018 11/05/2020 Overview (11/25/2018): Added automatically from request for surgery [id number] Impingement syndrome of right shoulder 11/25/2018 11/02/2019 Overview (11/25/2018): Added automatically from request for surgery [id number] Biceps tendinitis of right upper extremity 11/25/2018 11/02/2019 Overview (11/25/2018): Added automatically from request for surgery [id number] Osteoarthritis of right AC (acromioclavicular) joint 11/17/2018 11/05/2020 Assessment & Plan (11/17/2018 9:50 AM CDT): Pt wishes to proceed forward with surgery for hopeful repair of bone spur of right AC joint, labral and tendinitis repair per Orthopedics recommendation. Preoperative medical clearance was provided office today D/T patient's desire to move 4 with surgery Pain of hand 11/15/2014 10/24/2018 Finding of number of lesions 07/04/2014 04/13/2017 Overview (11/26/2016): Observation of number of lesions Encounters Date Type Department Care Team Description 11/09/2024 10:00 AM CDT Therapy [facility] Physical Therapy - [place] [address] [place] [address] Madelyn Alamo, COLIN Unilateral primary osteoarthritis, left knee (Primary Dx) 11/02/2024 11:15 AM CDT Office Visit [facility] [address] [place] [address] Sharla Mas MD Preoperative cardiovascular examination (Primary Dx); PSVT (paroxysmal supraventricular tachycardia) (CMS/HCC) (HCC); Bicuspid aortic valve; Palpitations; Atrial premature beats; Need for lipid screening 11/01/2024 10:00 AM CDT Therapy [facility] Physical [facility] [place] [address] Madelyn Alamo, [employer] SYSTEM[employer] ADMINISTRATOR Unilateral primary osteoarthritis, left knee (Primary Dx) 10/26/2024 1:45 PM LABORATORY MECHANIC HELPER Therapy [facility] Physical [facility] [place] [address] Madelyn Alamo, [employer] ADMINISTRATOR Unilateral primary osteoarthritis, left knee (Primary Dx) 10/19/2024 2:45 PM LABORATORY MECHANIC HELPER Therapy [facility] Physical [facility] [place] [address] Jhoana Mclean, PT Unilateral primary osteoarthritis, left knee (Primary Dx) 10/19/2024 Plan of Care Documentation [facility] Physical [facility] [place] [address] 10/10/2024 Telephone [facility] [address] [place] [id number] Sharla Mas MD from Last 3 Months Immunizations Immunization Administration Dates Next Due Influenza, Quadrivalent, Spl it, Intramuscular 07/03/2016,07/03/2015 Influenza, Trivalent, IM (MDV) 05/23/2012,2010 Influenza, Unspecified 05/22/2020,2018,05/23/2018,05/24 Pfizer SARS-CoV-2 Monovalent Vaccination (12+ Yrs) PURPLE 08/29/2020,08/11/2020 Tdap 02/21/2012 ZOSTER LIVE 11/29/2015 ZOSTER Recombinant 07/02/2020,04/18/2020 Surgical History Surgery Date Site/Laterality Comments GANGLION CYST EXCISION Right LASIK 08/23/2001 - 08/22/2002 LAPAROSCOPIC ENDOMETRIOSIS FULGURATION 08/23/1993 - 08/22/1994 LAPAROSCOPICALLY ASSISTED VA GINAL HYSTERECTOMY 08/23/1993 - 08/22/1994 with BSO, for endometriosis, adenomyosis, fibroids THUMB SURGERY 08/23/2014 - 08/22/2015 arhritis in base of thumb HAND SURGERY Right LAPAROSCOPIC TRANSEXTRAPERIT VILLA INGUINAL HERNIA REPAIR 08/23/2017 - 08/22/2018 Right HYSTERECTOMY OOPHORECTOMY Medical History Medical History Date Comments History of endometriosis SVT (supraventricular tachycardia) 2009 atrial flutter, PVC's, arrythmias Migraine headache GERD (gastroesophageal reflux disease) Heart murmur patient does not have this diagnosis 11/24/18 Atrial flutter (HCC) PVC's; SVT 2008, Ecological Modeler tested patient, MVR mild Cataract Family History Medical History Relation Name Comments Factor V Leiden Brother Pathologic fracture Father C-1 frac evens, with a fall (COD) Tremor Father Osteoporosis Mother Diabetes Son Benny Relation Name Status Comments Brother Alive Father (Age 76) Mother Alive Sister Alive Son Benny Social History Tobacco Use Types Packs/Day Years Used Date Smoking Tobacco: Never Smokeless Tobacco: Never Tobacco Cessation:Counseling Given: Not Answered Alcohol Use Standard Drinks/Week Comments No 0 (1 standard drink = 0.6 oz pur e alcohol) AUDIT-C Answer Date Recorded Q1: How often do you have a drink containing alc ohol? 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 file Not on file Not on file Obstetrics History Para Term AB IAB SAB Ectopic Multiple Livin g Live Births 3 3 3 0 0 0 0 0 0 3 3 Date Outcome GA Total Labor Labor/2nd/3rd Weight Sex Type Anes PTL Mago A1 A5 Name Clin Term Term Term Last Filed Vital Signs Vital Sign Reading Time Taken Comments Blood Pressure 120/64 11/02/2024 11:09 AM CDT Pulse 67 11/02/2024 11:09 AM CDT Temperature 37.3 C (99.1 F) 04/18/2020 1:25 PM CDT Respiratory Rate 18 11/05/2020 2:45 PM CDT Oxygen Saturation 97% 11/02/2024 11:09 AM CDT Inhaled Oxygen Concentration - - Weight 84.4 kg (186 lb) 11/02/2024 11:09 AM CDT Height 167.6 cm (5' 6 ) 11/02/2024 11:09 AM CDT Body Mass Index 30.02 11/02/2024 11:09 AM CDT Plan of Treatment Health Maintenance Due Date Last Done Comments Hepatitis B Screening 1974 Pneumococcal vaccine 65+ (1 of 1 - PCV) 2006 Osteoporosis Screening-Bone Density Scan 11/28/2017 11/29/2015, 11/29/2015, 11/29/2015 Breast Cancer Screening-Mammogram 10/11/2021 10/11/2020, 09/04/2019, 06/21/2018, Additional history exists Depression Screening 11/05/2021 11/05/2020, 06/18/2020, 11/02/2019, Additional history exists Fall Risk Assessment 11/05/2021 11/05/2020, 11/02/2019, 11/17/2018, Additional history exists Well Visit 65+ 11/05/2021 11/05/2020, 05/24, 11/02/2019, Additional history exists DTaP/Tdap/Td Vaccine (2 - Td or Tdap) 02/20/2022 02/21/2012 Covid-19 Vaccine (3 - 2023-2 5 season) 2024 08/29/2020, 08/11/2020 Influenza Vaccine (Season Ended) 2025 05/22/2020, 06/11/2019, 05/23/2018, Additional history exists Colon Cancer Screening-Colonoscopy 05/12/2026 05/12/2016, 05/12/2016, 05/12/2016, Additional history exists Colon Cancer Screening-CT Colonography Discontinued 05/12/2016, 05/12/2016, 05/12/2016, Additional history exists Colon Cancer Screening-DNA Stool Discontinued 05/12/2016, 05/12/2016, 05/12/2016, Additional history exists Colon Cancer Screening-FIT Discontinued 05/12, 05/12/2016, 05/12/2016, Additional history exists Colon Cancer Screening-Sigmoidoscopy Discontinued 05/12/2016, 05/12/2016, 05/12/2016, Additional history exists Hepatitis C Screening Completed 10/22/2016 Zoster Vaccine Completed 07/02/2020, 03/24, 11/29/2015 Medical Devices Implanted Type Area Baggage Smasher Device Identifier Shelf Expiration Date Model / Serial / Lot Mesh Surgical Progrip Polyester Rectangle L15 Cm X W9 Cm Self Secret Service Agent Hernia - [id number] Implanted:Qty: 1 on 11/12/2017 by Kevan Hoffman MD at [facility] [employer] 01/20/2022 [id number] / / [id number] [employer]el [employer] Nephew 2169-3 Reconstitute Scaffold Large Mesh Surgical Collagen Sterile Latex - [id number] Implanted:Qty: 1 on 11/29/2018 by Angel Campbell MD at [facility] Right: Shoulder [employer] 08/22/2021 2169-3 / / [id number] [employer] 2504-1 Regenerate Tendon [place] Suture - [id number] Implanted:Qty: 1 on 11/29/2018 by Angel Campbell MD at [facility] Right: Shoulder [employer] 08/30/2019 2504-1 / / [id number] [employer] 2503-A Arthroscopic Delivery System [place] Suture Sterile Disposable - [id number] Implanted:Qty: 1 on 11/29/2018 by Angel Campbell MD at [facility] Right: Shoulder [employer] 07/19/2019 2503-A / / [id number] Depuy Mitek [id number] Healix Advance Br Orthocord 4.5mm 3 [place] Suture Sterile Latex Free - [id number] Implanted:Qty: 1 on 11/29/2018 by Angel Campbell MD at [facility] Right: Shoulder Depuy Mitek 08/22/2020 [id number] / / [id number] Ar[employer]rex Inc Ar-2324bcc Swivelock C 4.75mm 19.1mm Closed Eyelet Vent [place] Suture - [id number] Implanted:Qty: 1 on 11/29/2018 by Angel Campbell MD at [facility] Right: Shoulder [employer] 09/22/2019 AR-[id number] C / / [id number] Procedures Procedure Name Priority Date/Time Associated Diagnosis Comments POCT LIPID PANEL Routine 11/02/2024 1:43 PM CDT Need for lipid screening ELECTROCARDIOGRAM REPORT Routine 11/02/2024 12:01 PM CDT Preoperative cardiovascular examination SCREENING MAMMOGRAM BILATERAL W MAURILIO Schedule Routine, Read Routine (OP Routine) 10/11/2020 1:14 PM LABORATORY MECHANIC HELPER Encounter for screening mammogram for malignant neoplasm of breast SERUM HEPATITIS C AB Routine 10/22/2016 1:35 PM LABORATORY MECHANIC HELPER COLONOSCOPY IMAGES 05/12/2016 HM DEXA SCAN Routine 11/29/2015 from Last 3 Months or Most Recently Relevant to Health Maintenance Results * POCT lipid panel (11/02/2024 1:43 PM CDT) Cholesterol, POC 172 mg/dL HDL, POC 60 mg/dL Triglycerides, POC 90 mg/dL LDL Cholesterol POC 94 mg/dL Chol/HDL Ratio, POC 1.5 Non-HDL Cholesterol, POC 112 mg/dL Cholesterol Total, POC 172 mg/dL Capillary blood 11/02/2024 1 :43 PM CDT Sharla Mas MD POINT OF CARE TEST ORDE RABLES Final Result * Electrocardiogram Report (11/02/2024 12:01 PM CDT) Sharla Mas MD ECG ORDERABLES Final R esult * Screening Mammogram Bilateral W Maurilio (10/11/2020 1:14 PM LABORATORY MECHANIC HELPER) Anatomical Region Laterality Modality Breast Bilateral Mammography 10/11/2020 2:55 PM LABORATORY MECHANIC HELPER Impressions 10/11/2020 2:57 PM LABORATORY MECHANIC HELPER There is no mammographic evidence of malignancy. A 1 year screening mammogram is recommended. BI-RADS: 1 - Negative. The patient will be entered into a reminder system with a target due date of 1 year for her next mammogram. Electronically signed by: Rajwinder Dhillon MD Narrative 10/11/2020 2:57 PM LABORATORY MECHANIC HELPER EXAMINATION: SCREENING MAMMOGRAM BILATERAL W MAURILIO ORDERING HEALTHCARE PROVIDER: SELF SCREENING MAMMOGRAM HISTORY: Routine screening mammography. COMPARISON: 09/04/2019, 06/21/2018, 03/08/2017 and 11/29/2015 TECHNIQUE: CC and MLO views of the bilateral breasts were obtained with digital technique using breast tomosynthesis with C view. Computer aided detection was utilized. FINDINGS: DENSITY: The tissue of the bilateral breasts is heterogeneously dense, which may obscure small masses. BREASTS: There are no suspicious masses, suspicious calcifications, or other suspicious findings in either breast. There has been no suspicious interval change. Self Screening Mammogram IMG MAMMO PROCEDURES Fi nal Result * Serum Hepatitis C ab (10/22/2016 1:35 PM LABORATORY MECHANIC HELPER) HCV ab Negative Negative CDR HISTOR ICAL RESULTS Serum 10/22/2016 1:35 PM LABORATORY MECHANIC HELPER Luana Talbert MD LAB BLOOD ORDERABLES Final Res ult CDR HISTORICAL RESULTS * COLONOSCOPY IMAGES (05/12/2016) Anatomical Region Laterality Modality Other Narrative 05/12/2016 Ordered by an unspecified provider. Historical Provider GI PROCEDURE ORDERABLES F inal Result * HM DEXA SCAN (11/29/2015) HM DEXA Scan Abnormal Comment:osteopenia Historical Provider HEALTH MAINTENANCE Final Result from Last 3 Months or Most Recently Relevant to Health Maintenance Insurance MEDICARE [employer] [place] [address] [facility]LY [facility] AET[employer] SIG [id number] [employer] Address: [address] [place] [address] MEDICARE [employer] MEDICARE [employer] Care Teams Director Drug Safety Relationship Specialty Start Date End Date Lauri Menchaca DO PCP - General Internal Medicine 01/21/22
--- OUTSIDE RECORDS SUMMARY | 2024-11-30 15:16 | XMS_ITS | Encounter Summary ---
Author Organization [facility] Address [address] [place] [address] Care Team Providers Care Advocacy Director Name Role Phone Unavailable Primary Care Provider Unavailabl e Encounter Details Date Type Department Care Team (Late st Contact Info) Description 03/04/2023 Lab Requisition [facility] - DermPath Lab [address] [facility] [facility] [place] [address] Yolis Franco DO [address] [facility] [address] [place] [address] Social History Tobacco Use Types Packs/Day Years Used Date Smoking Tobacco: Never Assessed Sex and Gender Information Value Date Recorded Sex Assigned at Not on file Gender Identity Not on file Sexual Orientation Not on file documented as of this encounter Plan of Treatment Not on file documented as of this encounter Procedures Procedure Name Priority Date/Time Associated Diagnosis Comments DERMATOPATHOLOGY Routine 03/04/2023 2:52 PM CDT documented in this encounter Results * DERMATOPATHOLOGY (03/04/2023 2:52 PM CDT) Case Report Dermatopathology Report Case: [id number] Authorizing Provider: Yolis Franco DO Collected: 03/04/2023 02:52 PM Ordering Location: [facility] DermPath Lab Received: 03/05/2023 01:39 PM Pathologist: Shira Patel MD Specimens: A) - Skin, right back B) - Skin, right thigh 1:46 PM CDT DERMATOPATHOLOGY LABORATORY Final Diagnosis Specimen A. SKIN, right back: BASAL CELL CARCINOMA, INFILTRATIVE PATTERN (C44.519) Specimen B. SKIN, right thigh: LARGE CELL ACANTHOMA (D23.9) (see microscopic description) 1:46 PM CDT DERMATOPATHOLOGY LABORATORY Clinical History A) : R/O BCC B) : LENTIGO R/O LM 3 1:46 PM CDT DERMATOPATHOLOGY LABORATORY Gross Description Specimen A: Received is one formalin filled container labeled with the patient's name and designated right back. The specimen consists of a shave biopsy measuring 6x7x1 mm. Jar 0. Specimen B: Received is one formalin filled container labeled with the patient's name and designated right thigh. The specimen consists of a shave biopsy measuring [id number] mm. Jar 0. 1:46 PM CDT DERMATOPATHOLOGY LABORATORY Microscopic Description Specimen A. SKIN, right back: Within the dermis there are nodular aggregates of basaloid cells associated with fibromyxoid stroma and epithelial-stromal clefts. At the advancing margin of the neoplasm, there are smaller angulated nests that infiltrate the dermis. Specimen B. SKIN, right thigh: Sections show compact orthokeratosis with acanthosis composed of slightly larger keratinocytes with basal layer hyperpigmentation. MART-1/Melan-A staining highlights regular periodicity of melanocytes along the dermoepidermal junction. 1:46 PM CDT DERMATOPATHOLOGY LABORATORY Disclaimer An external and internal positive and negative controls are appropriate for the histochemical, immunohistochemical and immunofluorescence stain(s) in this case (if any), except where stated explicitly. The performance characteristics of the stain(s) cited in this report were developed and its performance characteristic determined by the Dermatopathology Laboratory at [facility], directed by Dr. Emilee De León. These tests need not be, and therefore are not, approved by the [place] Food and Drug Administration. The tests are used for clinical purposes. Billing Codes Specimen Charges Stain Charges 89506 43445 1 1 [id number] 1 3 1:46 PM CDT DERMATOPATHOLOGY LABORATORY Embedded Images 3 1:46 PM CDT DERMATOPATHOLOGY LABORATORY Pathology/Cytology TISSUE SPECIMEN FROM SKIN / Unknown 03/04/2023 2:52 PM CDT 03/05/2023 1:39 PM CDT Miscellaneous samples (specimen) TISSUE SPECIMEN FROM SKIN / Unknown 03/04/2023 2:52 PM CDT 03/05/2023 1:39 PM CDT Yolis Franco DO LAB - PATHOLOGY/C YTOLOGY ORDERABLES DERMATOPATHOLOGY LABORATORY [facility] - Department of Dermatology [facility] Medicine [address] [place] [address], [address] [phone] documented in this encounter Visit Diagnoses Not on filedocumented in this encounter
--- OUTSIDE RECORDS SUMMARY | 2024-11-30 15:16 | XMS_ITS | Referral Summary ---
Author Organization [facility] Address [address] [place] [address] Care Team Providers Care Shoe Laster Name Role Phone Lauri Menchaca DO Primary Care Provider [phone] Encounters Date Type Department Care Team Description 11/09/2024 10:00 AM CDT Therapy [facility] [place] [address] Madelyn Alamo, LEADER ASSEMBLER Unilateral primary osteoarthritis, left knee (Primary Dx) 11/02/2024 11:15 AM CDT Office Visit [facility] Cardiology [address] [place] [id number] Sharla Mas MD Preoperative cardiovascular examination (Primary Dx); PSVT (paroxysmal supraventricular tachycardia) (CMS/HCC) (HCC); Bicuspid aortic valve; Palpitations; Atrial premature beats; Need for lipid screening 11/01/2024 10:00 AM CDT Therapy [facility] [place] [address] Madelyn Alamo, LEADER ASSEMBLER Unilateral primary osteoarthritis, left knee (Primary Dx) 10/26/2024 1:45 PM [employer] Therapy [facility] [place] [address] Madelyn Alamo, LEADER ASSEMBLER Unilateral primary osteoarthritis, left knee (Primary Dx) 10/19/2024 Plan of Care Documentation [facility] [place] [address] 10/19/2024 2:45 PM [employer] REAL [employer] Therapy [facility] [place] [address] Vinay Jhoana Elisa, PT Unilateral primary osteoarthritis, left knee (Primary Dx) 10/10/2024 Telephone [facility] Cardiology [address] [place] [address] Sharla Mas MD from Last 3 Months Allergies Active Allergy Reactions Criticality Noted Date [...] (11/25/2018): Added automatically from request for surgery [id number] Preoperative cardiovascular examination 11/18/19 19 Assessment & [...] (11/10/2017): Added automatically from request for surgery [id number] PSVT (paroxysmal supraventricular tachycardia) ( CMS/HCC) 04/13/2017 Assessment & Plan (11/17/2018 9:53 AM [...] (11/25/2018): Added automatically from request for surgery [id number] Impingement syndrome of right shoulder 11/25/2018 11/02/2019 Overview (11/25/2018): Added automatically from request for surgery [id number] Biceps tendinitis of right upper extremity 11/25/2018 11/02/2019 Overview (11/25/2018): Added automatically from request for surgery [id number] Osteoarthritis of right AC (acromioclavicular) joint 11/17/2018 [...] Overview (11/26/2016): Observation of number of lesions Immunizations Immunization Administration Dates Next Due Influenza, Quadrivalent, Spl it, Intramuscular 07/03/2016,07/03/2015 Influenza, Trivalent, IM (MDV) 05/23/2012,2010 Influenza, Unspecified 05/22/2020,2018,05/23/2018,05/24 Pfizer SARS-CoV-2 Monovalent Vaccination (12+ Yrs) PURPLE 08/29/2020,08/11/2020 Tdap 02/21/2012 ZOSTER LIVE 11/29/2015 ZOSTER Recombinant 07/02/2020,04/18/2020 Social History Tobacco Use Types Packs/Day Years [...] on file Legal Sex Female 11:53 PM [employer] Gender Identity Female 12/06/2018 9:17 AM CDT Sexual Orientation Straight 12/06/2018 9: 17 AM CDT 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 file Not on file Not on file Last Filed Vital Signs Vital Sign Reading [...] 11/02/2024 11:09 AM CDT Plan of Treatment Not on file Medical Devices Implanted Type Area Aboriginal Education Teacher Device Identifier Shelf Expiration Date Model / Serial / Lot Mesh Surgical Progrip Polyester Rectangle L15 Cm X W9 Cm Self Switch Maker Hernia - [id number] Implanted:Qty: 1 on 11/12/2017 by Kevan Hoffman MD at [facility] [employer] 01/20/2022 [id number] / / [id number] [employer]el [employer] Nephew 2169-3 Reconstitute Scaffold Large Mesh Surgical Collagen Sterile Latex - [id number] Implanted:Qty: 1 on 11/29/2018 by Angel Campbell MD at [facility] Right: Shoulder [employer] 08/22/2021 2169-3 / / [id number] [employer]hew 2504-1 Regenerate Tendon [place] Suture - [id number] Implanted:Qty: 1 on 11/29/2018 by Angel Campbell MD at [facility] Right: Shoulder [employer] 08/30/2019 2504-1 / / [id number] [employer]hew 2503-A Arthroscopic Delivery System [place] Suture Sterile Disposable - [id number] Implanted:Qty: 1 on 11/29/2018 by Angel Campbell MD at [facility] Right: Shoulder [employer] 07/19/2019 2503-A / / [id number] Depuy Mitek [id number] Healix Advance Br Orthocord 4.5mm 3 [place] Suture Sterile Latex Free - [id number] Implanted:Qty: 1 on 11/29/2018 by Angel Campbell MD at [facility] Right: Shoulder Depuy Mitek 08/22/2020 [id number] / / [id number] Arthrex Inc Ar-2324bcc Swivelock C 4.75mm 19.1mm Closed Eyelet Vent [place] Suture - [id number] Implanted:Qty: 1 on 11/29/2018 by Angel Campbell MD at [facility] Right: Shoulder [employer] 09/22/2019 [id number] C / / [id number] Procedures Procedure Name Priority Date/Time Associated Diagnosis Comments POCT LIPID PANEL Routine 11/02/2024 1:43 PM CDT Need for lipid screening ELECTROCARDIOGRAM REPORT Routine 11/02/2024 12:01 PM CDT Preoperative cardiovascular examination SCREENING MAMMOGRAM BILATERAL W MAURILIO Schedule Routine, Read Routine (OP Routine) 10/11/2020 1:14 PM [employer] Encounter for screening mammogram for malignant neoplasm of breast SERUM HEPATITIS C AB Routine 10/22/2016 1:35 PM [employer] REAL [employer]STATE COLONOSCOPY IMAGES 05/12/2016 HM DEXA SCAN Routine [...] Capillary blood 11/02/2024 1 :43 PM CDT Result [facility] Sharla Mas MD POINT OF CARE TEST ORDE RABLES Final Result * Electrocardiogram Report (11/02/2024 12:01 PM CDT) Sharla Mas MD ECG ORDERABLES Final R esult * Screening Mammogram Bilateral W Maurilio (10/11/2020 1:14 PM [employer] ESTATE) Anatomical Region Laterality Modality Breast Bilateral Mammography 10/11/2020 2:55 PM [employer] ESTATE Impressions 10/11/2020 2:57 PM AP[employer]ISER REAL ESTATE There is no mammographic evidence of malignancy. A 1 year screening mammogram is recommended. BI-RADS: 1 - Negative. The patient will be entered into a reminder system with a target due date of 1 year for her next mammogram. Electronically signed by: Rajwinder Dhillon MD Narrative 10/11/2020 2:57 PM [employer] EXAMINATION: SCREENING MAMMOGRAM BILATERAL W MAURILIO ORDERING [...] Serum Hepatitis C ab (10/22/2016 1:35 PM [employer]STATE) HCV ab Negative Negative CDR HISTOR ICAL RESULTS Serum 10/22/2016 1:35 PM [employer]STATE Luana Talbert MD LAB BLOOD ORDERABLES Final Res ult CDR HISTORICAL RESULTS * COLONOSCOPY IMAGES (05/12/2016) Anatomical Region Laterality Modality Other Narrative 05/12/2016 Ordered by an unspecified provider. Historical Provider GI PROCEDURE ORDERABLES F inal Result * DEXA SCAN (11/29/2015) DEXA Scan Abnormal Comment:osteopenia Historical Provider HEALTH MAINTENANCE Final Result from Last 3 Months or Most Recently Relevant to Health Maintenance [place] [address] [employer] MEDIC[employer] [facility] AET SIG [id number] [facility] EMPLOYEE HEALTH PLANS Address: [address] [place] [address] MEDICARE [employer] MEDICARE [employer] Care Teams Shoe Laster Relationship Specialty Start Date End Date Lauri Menchaca DO PCP - General Internal Medicine 01/21/22
--- OUTSIDE RECORDS SUMMARY | 2024-11-30 15:16 | XMS_ITS | Clinical Summary ---
Author Organization [facility] Address [address] [place] [address] Care Team Providers Care Loss Prevention Guard Name Role Phone Unavailable Primary Care Provider Unavailabl e Source Comments [facility],non-owned Affiliates and Associated Physician Practices is amultiple site organization consisting of ambulatory clinics and hospital sitesin [place], [place], [place] and [place]. This disclosure is being madepursuant to the Care Everywhere program and may not contain all information available regarding this patient. Last updated 18.[facility] [employer] Social History Tobacco Use Types Packs/Day Years Used Date Smoking Tobacco: Never Assessed Sex and Gender Information Value Date Recorded Sex Assigned at Not on file Gender Identity Not on file Sexual Orientation Not on file Plan of Treatment Health Maintenance Due Date Last Done Comments BONE DENSITY TESTING 1955 COLOGUARD (AGES 45-75) - COL ON CA SCREENING 1956 COLON MONITORING 1956 COLONOSCOPY - COLON CA SCREENING 1956 CT COLONOGRAPHY - COLON CA SCREENING 1955 Colorectal Cancer Screening 1956 FIT - COLON CA SCREENING 1956 FLEX SIG - COLON CA SCREENING 1956 LIPID TESTING 1955 MAMMOGRAM 1955 MEDICARE AWV 12 MONTHS 1956 HEPATITIS C SCREENING 06/08/1974 DTAP/TDAP/TD VACCINES (1 - Tdap) 1975 PNEUMOCOCCAL VACCINE 50+ (1 of 1 - PCV) 2006 ZOSTER VACCINE (1 of 2) 2006 COVID-19 VACCINE ( - 2023-2 5 season) 2024 DEPRESSION SCREENING 08/23/2024 INFLUENZA VACCINE (Season Ended) 2025 Respiratory Syncytial Virus (RSV) Vaccine Pt: or over 60 yrs (1 - 1-dose 75+ series) 2031 HEPATITIS B VACCINE Aged Out No longe r eligible based on patient's age to complete this topic HIB VACCINE Aged Out No longer eligi ble based on patient's age to complete this topic HPV VACCINE Aged Out No longer eligi ble based on patient's age to complete this topic MENINGOCOCCAL (Group B) VACC INE SHARED DECISION-MAKING Aged Out No longer eligibl e based on patient's age to complete this topic MENINGOCOCCAL GROUPS A/C/Y/W VACCINE Aged Out No longer eligible b ased on patient's age to complete this topic
--- OUTSIDE RECORDS SUMMARY | 2024-11-30 15:17 | XMS_ITS | Encounter Summary ---
Author Organization [facility] Address [address] [place] [address] Care Team Providers Care Telephone Surveyor Name Role Phone Luana Talbert MD Primary Care Provider [phone] Luana Talbert MD Primary Care Provider [phone] Lauri Menchaca DO Primary Care Provider [phone] Reason for Referral * Diagnostic Imaging (Routine) - Closed Specialty Diagnoses / Procedures Referred By Contac t Referred To Contact Procedures Dexa Axial Skeleton Bone Density 1 or 2 Site [facility] Health Information Management [address] [place] [address] Phone: tel: fax: [facility] Referral ID Status Reason Start Date Expiration Date Visits Re quested Visits Authorized [id number] Closed 10/10/2019 04/20/2021 1 1 Encounter Details Date Type Department Care Team (Late st Contact Info) Description 11/29/2015 Orders Only [facility] Health Information Management [address] [place] [address] Luana Talbert MD [address] [place] [address] [place] [address] Social History Tobacco Use Types Packs/Day Years Used Date Smoking Tobacco: Never Alcohol Use Standard Drinks/Week Comments No 0 (1 standard drink = 0.6 oz pur e alcohol) Comments Unknown Sex and Gender Information Value Date Recorded Sex Assigned at Not on file Legal Sex Female 11:53 PM ADMINISTRATIVE OFFICE CLERK Gender Identity Female 12/06/2018 9:17 AM CDT Sexual Orientation Straight 12/06/2018 9: 17 AM CDT documented as of this encounter Plan of Treatment Not on file documented as of this encounter Procedures Procedure Name Priority Date/Time Associated Diagnosis Comments DEXA AXIAL SKELETON BONE DENSITY 1 OR MORE SITES Schedule Routine, Read Routine (OP Routine) 11/29/2015 documented in this encounter Results * Dexa Axial Skeleton Bone Density 1 or 2 Site (11/29/2015) Anatomical Region Laterality Modality Body N/A Radiographic Kate ging us Historical Provider MD CARDONA DXA PROCEDURES Final Result documented in this encounter Visit Diagnoses Not on filedocumented in this encounter Care Teams Telephone Surveyor Relationship Specialty Start Date End Date Luana Talbert MD PCP - General 10/14/16 11/19/16 Luana Talbert MD PCP - General 10/12/13 10/13/16 Lauri Menchaca DO PCP - General Internal Medicine 01/21/22 documented as of this encounter
[2024-11-30 16:03] LABS: Hematocrit 42.9 % (37.0-47.0); Hemoglobin 13.8 g/dL (12.0-15.0)
--- NOTE | 2024-11-30 16:07 | ECG_ITS ---
Test Date: 2024-11-30 16:24:14 Measurements Intervals Luther Rate: 53 P: 77 FL: 147 QRS: 42 QRSD: 88 T: 41 QT: 444 QTc: 420 Interpretive Statements SINUS BRADYCARDIA BORDERLINE ECG No previous ECG available for comparison Electronically Signed On 11-30-2024 16:30:42 CDT by Harvinder Quiroga D.O.
[2024-11-30 16:19] LABS: Albumin Level 4.4 g/dL (3.5-5.1); Estimated Glomerular Filt Rate > 60; Glucose 89 mg/dL (65-110)
== END 2024-11-30 14:47 | disposition home or self-care (01) ==
PROVIDERS: PCP Internal Medicine; Visit Provider Orthopaedic Surgery
DX: Z01.818 Encounter for other preprocedural examination (principal); M17.12 Unilateral primary osteoarthritis, left knee; E78.5 Hyperlipidemia, unspecified; E55.9 Vitamin D deficiency, unspecified; Q23.1 Congenital insufficiency of aortic valve
CPT/HCPCS: 36415; 73700; 82040; 82565; 82947; 85014; 85018; 93005

== ENCOUNTER 2025-02-14 13:28 | Outpatient (CLI) | payer MEDICARE, SELFPAY ==
[2025-02-14 14:42] LABS: Basophils Absolute Auto 0.1 K/mm3 (0.0-0.1); Basophils Percent Auto 0.8 % (0.2-1.2); Eosinophils Absolute Auto 0.1 K/mm3 (0-0.3); Eosinophils Percent Auto 1.4 % (0-4.4); Hematocrit 42.8 % (37.0-47.0); Hemoglobin 13.8 g/dL (12.0-15.0); Immature Granulocyte Absolute 0.02 K/mm3 (0.00-0.031); Immature Granulocyte Percent A 0.3 % (0-0.5); Lymphocytes Percent Auto 32.5 % (18.3-44.2); Mean Corpuscular HGB Conc 32.2 g/dl (32-36); Mean Corpuscular Hemoglobin 30.7 pg (26-34); Mean Corpuscular Volume 95.1 fl (80-100); Mean Platelet Volume 9.5 fl (7.4-10.4); Monocytes Absolute Auto 0.6 K/mm3 (0.1-0.6); Monocytes Percent Auto 8.8 % (2.6-8.5); Neutrophils Absolute Auto 3.6 K/mm3 (1.3-6.7); Neutrophils Percent Auto 56.2 % (45.5-73.1); Platelet Count Result 292 k/mm3 (150-375); Red Cell Distribution Width 14.1 % (11.5-14.5); White Blood Count 6.5 K/mm3 (4.5-10.0)
[2025-02-14 14:51] LABS: Albumin Level 4.3 g/dL (3.5-5.1); Estimated Glomerular Filt Rate > 60; Glucose 93 mg/dL (65-110)
[2025-02-14 15:25] LABS: Urine Cotinine NEGATIVE
[2025-02-14 15:57] LABS: MRSA (PCR) NOT DETECTED (NOT DETECTE)
[2025-02-14 16:16] LABS: Hemoglobin A1C 5.9 % (<5.7)
== END 2025-02-14 13:29 | disposition home or self-care (01) ==
LOC: ANHSURGERY 13:33
PROVIDERS: PCP Internal Medicine; Visit Provider Orthopaedic Surgery
DX: M17.9 Osteoarthritis of knee, unspecified (principal); Z01.818 Encounter for other preprocedural examination
CPT/HCPCS: 80307; 82040; 82565; 82947; 83036; 85025; 87641

== ENCOUNTER 2025-03-12 01:25 | Day surgery (SDC) | payer MEDICARE, SELFPAY ==
[2025-02-14 13:48] VITALS: BP 125/53; PULSE 52; RESP 14; TEMP 37.1; O2SAT 100; BMI 29.2
--- NOTE | 2025-02-14 14:15 | PC.NURSE ---
Report to the Outpatient Waiting Room, entrance under the green pavilion located off [facility], at time __1000am on date ____03/12/25___. Planned Procedure Time: __1200pm .? Time changes happen often and if your time is changed the preop area will call you the afternoon before. - You and your visitor will be asked to self-screen and do not enter if you have any COVID symptoms. Please call surgeon if you need to reschedule. - A mask is optional within the hospital at this time. Patients may have clear liquids (water, carbonated beverages, clear teas, apple juice) until 3 hours prior to surgery with a maximum of 20 ounces. - No food from midnight until time of surgery and no smoking, or chewing tobacco (or any form of nicotine). No chewing gum, candy or mints. (0900am) - Take only the following medications with a SIP of water on the morning of surgery: Atenolol and Diltiazem and Tylenol if needed DO NOT STOP ANY OF YOUR OTHER PRESCRIPTION MEDICATIONS PRIOR TO SURGERY EXCEPT THE FOLLOWING Hold all vitamins and supplements for 3 days per anesthesiologist.Date to take last dose is 03/08/25 Medications to discontinue per physician Nicole/Niles [address] Sommers Date to take last dose__03/03/25 Please no make-up, nail jordanian, hairspray, perfume, deodorant, or body powder the day of surgery.? No jewelry (including any body piercings) or valuables the day of surgery, leave them at home.? Please take a shower or bath the night before, or the morning of, surgery with an antibacterial soap.? Wear comfortable, loose fitting clothing.?Tennis shoes, Overnight bag, Cell phone w flour distributor. - Jewelry must be removed prior to entering the operating room.? Rings and piercings that are not removed may be cut off. - The hospital will not accept responsibility for valuables.? - Please leave all valuables, including medications, at home the day of surgery. If you are going home after surgery, a licensed team truck driver must drive you home.? - NO public transportation without another adult if you receive anesthesia. - We recommend that an adult stay with you for 24 hours following discharge. - We also recommend that you do not drive, make important decision, drink alcoholic beverages, or take any drugs that were not prescribed by your health care provider for at least 24 hours after your discharge time. Follow any additional instructions given to you from your surgeon. Telephone instructions given to _Patient and asked if any additional questions and then verbalized understanding. Patient advised to call surgeon office or pre surgery nurse liaison [phone] if any additional questions.
[2025-03-12] VITALS (14 sets, daily range): BP systolic 121–148; BP diastolic 55–76; PULSE 64–71; RESP 14–20; TEMP 35.7–36.7; O2SAT 96–100
--- NOTE | ~2025-03-12 | XR_ITS ---
EXAM: [id number] DATE: 03/12/2025 15:45 HISTORY: LEFT TOTAL KNEE ARTHROPLASTY . COMPARISON: X-ray left knee 09/25/2024; CT lower extremity left 11/30/2024. FINDINGS: Left total knee PLASTY hardware in good position. No hardware fracture or abnormal perihar dware lucency. No osseous fracture. Gas over the joint space. No unexpected radiopaque foreign body. IMPRESSION: Expected postsurgical changes. No radial graphic evidence of procedure or hardware relate d compilation. Reviewed, dictated and finalized at location K. IMPRESSION: Expected postsurgical changes. No radial graphic evidence of proced ure or hardware related compilation.
--- OUTSIDE RECORDS SUMMARY | 2025-03-12 01:27 | XMS_ITS | Encounter Summary ---
Author Organization [facility] Address [address] [place] [address] Care Team Providers Care Deputy Chief Magistrate Name Role Phone Unavailable Primary Care Provider Unavailabl e Encounter Details Date Type Department Care Team (Late st Contact Info) Description 04/08/2023 Lab Requisition [facility] - DermPath Lab [address] [place] [address] Yolis Franco DO [address] [place] [address] Social History Tobacco Use Types Packs/Day Years Used Date Smoking Tobacco: Never Assessed Comments Unknown Sex and Gender Information Value Date Recorded Sex Assigned at Not on file Legal Sex Female 10:37 AM CDT Gender Identity Not on file Sexual Orientation Not on file documented as of this encounter Plan of Treatment Not on file documented as of this encounter Procedures Procedure Name Priority Date/Time Associated Diagnosis Comments DERMATOPATHOLOGY Routine 04/08/2023 4:26 PM CDT documented in this encounter Results * DERMATOPATHOLOGY (04/08/2023 4:26 PM CDT) Case Report Dermatopathology Report Case: [id number] Authorizing Provider: Yolis Franco DO Collected: 04/08/2023 04:26 PM Ordering Location: [facility] DermPath Lab Received: 04/09/2023 03:26 PM Pathologist: Shira Patel MD Specimen: Skin, right back 12:52 PM CDT DERMATOPATHOLOGY LABORATORY Final Diagnosis Specimen A. SKIN, right back: BASAL CELL CARCINOMA (C44.519) NOT PRESENT AT MARGIN DERMAL SCAR (L90.5) 12:52 PM CDT DERMATOPATHOLOGY LABORATORY at 1252 CDT Clinical History R/O: BCC, Biopsy Proven. Please Check Margins. 3 12:52 PM CDT DERMATOPATHOLOGY LABORATORY Gross Description Specimen A: Received is one formalin filled container labeled with the patient's name and designated right back. The specimen consists of a non-oriented ellipse of skin measuring 58s66h3 mm. Also, there is a lesion measuring [...] characteristic determined by the Dermatopathology Laboratory at [facility], directed by Dr. Emilee De León. These tests need not be, and therefore are not, approved by the [place] Food and Drug Administration. The tests are used for clinical purposes. Billing Codes Specimen Charges Stain Charges 41873 1 3 12:52 PM CDT DERMATOPATHOLOGY LABORATORY Embedded Images 3 12:52 PM CDT DERMATOPATHOLOGY LABORATORY Pathology/Cytolo gy TISSUE SPECIMEN FROM SKIN / Unknown 04/08/2023 4:26 PM CDT 04/09/2023 3:26 PM CDT us Yolis Franco DO LAB - PATHOLOGY/CYTOLOGY ORDERABLES Final Result DERMATOPATHOLOGY LABORATORY [facility] - Department of Dermatology [address] [place] [address], [facility] [phone] documented in this encounter Visit Diagnoses Not on filedocumented in this encounter
--- OUTSIDE RECORDS SUMMARY | 2025-03-12 01:28 | XMS_ITS | Encounter Summary ---
Author Organization [facility] Address [address] [place] [address] Care Team Providers Care Senior Instructional Designer Name Role Phone Marquis Talbert MD Primary Care Provider [phone] Marquis Talbert MD Primary Care Provider [phone] Lauri Menchaca DO Primary Care Provider [phone] Reason for Referral * Diagnostic Imaging (Routine) - Closed Specialty Diagnoses / Procedures Referred By Zoltan singh Referred To Contact Procedures Dexa Axial Skeleton Bone Density 1 or 2 Site [facility] Health Information Management [address] [place] [address] Phone: tel: fax: [facility] Referral ID Status Reason Start Date Expiration Date Visits Re quested Visits Authorized [id number] Closed 10/10/2019 04/20/2021 1 1 Encounter Details Date Type Department Care Team (Late st Contact Info) Description 11/29/2015 Orders Only [facility] Health Information Management [address] [place] [id number] Marquis Talbert MD [address] [place] [address] [place] [address] Social History Tobacco Use Types Packs/Day Years Used Date Smoking Tobacco: Never Alcohol Use Standard Drinks/Week Comments No 0 (1 standard drink = 0.6 oz pur e alcohol) Comments Unknown Sex and Gender Information Value Date Recorded Sex Assigned at Not on file 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
--- OUTSIDE RECORDS SUMMARY | 2025-03-12 01:28 | XMS_ITS | Clinical Summary ---
Author Organization [facility] Address [address] [place] [address] Care Team Providers Care Development Planner Name Role Phone Lauri Menchaca DO Primary Care Provider [phone]- [phone] Allergies Active Allergy Reactions Criticality Noted Date [...] unit tablet Take by mouth Acti ve Tiadylt ER 180 mg 24 hr capsule TAKE 1 CAPSULE BY MOUTH EVERY DAY 90 capsule 2 09/11/2024 Active atenoloL (TENORMIN) 25 mg tablet TAKE 1 TABLET (25 MG TOTAL) BY MOUTH DAILY. 90 tablet 2 12/18/2024 Active Active Problems Problem Noted Date Diagnosed Date Hypercholesterolemia 01/21/2022 Chest pressure 01/21/2022 Palpitations 07/14/2021 Atrial premature beats 07/14/2021 Nonrheumatic mitral valve regurgitation 07/14/20 Typical atrial flutter 07/14/2021 Ventricular premature beats 07/14/2021 Bicuspid aortic valve 11/05/2020 Need for subacute bacterial endocarditis prophyl axis 11/05/2020 Superior glenoid labrum lesion of right shoulder 11/25/2018 Overview (11/25/2018): Added automatically from request for surgery [id number] Preoperative cardiovascular examination 11/18/19 19 Assessment & [...] (11/10/2017): Added automatically from request for surgery [id number] PSVT (paroxysmal supraventricular tachycardia) ( [facility]) 04/13/2017 Assessment & Plan (11/17/2018 9:53 AM [...] (11/25/2018): Added automatically from request for surgery [id number] Impingement syndrome of right shoulder 11/25/2018 11/02/2019 Overview (11/25/2018): Added automatically from request for surgery [id number] Biceps tendinitis of right upper extremity 11/25/2018 11/02/2019 Overview (11/25/2018): Added automatically from request for surgery [id number] Osteoarthritis of right AC (acromioclavicular) joint 11/17/2018 [...] 11/24/18 Atrial flutter (HCC) PVC's; SVT 2008, Hydro Excavation Operator tested patient, MVR mild Cataract Family History Medical History Relation Name Comments Factor V Leiden Brother Pathologic fracture Father C-1 frac ture, with a fall (COD) Tremor Father Osteoporosis [...] on file Legal Sex Female 11:53 PM SERGING MACHINE OPERATOR Gender Identity Female 12/06/2018 9:17 AM CDT [...] 11:09 AM CDT Height 167.6 cm (5' 6) 11/02/2024 11:09 AM CDT Body Mass Index [...] 5 season) 2024 08/29/2020, 08/11/2020 Influenza Vaccine (#1) 2025 0, 06/11/2019, 05/23/2018, Additional history exists Colon Cancer [...] 03/24, 11/29/2015 Medical Devices Implanted Type Area Dot Net Developer Device Identifier Shelf Expiration Date Model / Serial / Lot Mesh Surgical Progrip Polyester Rectangle L15 Cm X W9 Cm Self Skein Straightener Hernia - [id number] Implanted:Qty: 1 on 11/12/2017 by Kevan Hoffman MD at [facility] [employer] 01/20/2022 [id number] / / [id number] Patel [employer] Nephew 2169-3 Reconstitute Scaffold Large Mesh Surgical Collagen Sterile Latex - [id number] Implanted:Qty: 1 on 11/29/2018 by Angel Campbell MD at [facility] Right: Shoulder [employer] 08/22/2021 2169-3 / / [id number] Patel [employer] Nephew 2504-1 Regenerate Tendon Saco Suture - [id number] Implanted:Qty: 1 on 11/29/2018 by Angel Campbell MD at [facility] Right: Shoulder [employer] 08/30/2019 2504-1 / / [id number] Patel [employer] Nephew 2503-A Arthroscopic Delivery System Saco Suture Sterile Disposable - [id number] Implanted:Qty: 1 on 11/29/2018 by Angel Campbell MD at [facility] Right: Shoulder [employer]hew 07/19/2019 2503-A / / [id number] Depuy Mitek [id number] Healix Advance Br Orthocord 4.5mm 3 Saco Suture Sterile Latex Free - [id number] Implanted:Qty: 1 on 11/29/2018 by Angel Campbell MD at [facility] Right: Shoulder Depuy Mitek 08/22/2020 [id number] / / [id number] Arthrex Inc Ar-2324bcc Swivelock C 4.75mm 19.1mm Closed Eyelet Vent Saco Suture - [id number] Implanted:Qty: 1 on 11/29/2018 by Angel Campbell MD at [facility] Right: Shoulder [employer] Inc 09/22/2019 AR-2324BC C / / [id number] Procedures Procedure Name Priority Date/Time Associated Diagnosis Comments SCREENING MAMMOGRAM BILATERAL W MAURILIO Schedule Routine, Read Routine (OP Routine) 10/11/2020 1:14 PM SERGING MACHINE OPERATOR Encounter for screening mammogram for malignant neoplasm of breast SERUM HEPATITIS C AB Routine 10/22/2016 1:35 PM SERGING MACHINE OPERATOR COLONOSCOPY IMAGES 05/12/2016 HM DEXA SCAN Routine 11/29/2015 from Last 3 Months or Most Recently Relevant to Health Maintenance Results * Screening Mammogram Bilateral W Maurilio (10/11/2020 1:14 PM SERGING MACHINE OPERATOR) Anatomical Region Laterality Modality Breast Bilateral Mammography 10/11/2020 2:55 PM SERGING MACHINE OPERATOR Impressions 10/11/2020 2:57 PM SERGING MACHINE OPERATOR There is no mammographic evidence of malignancy. A 1 year screening mammogram is recommended. BI-RADS: 1 - Negative. The patient will be entered into a reminder system with a target due date of 1 year for her next mammogram. Electronically signed by: Rajwinder Dhillon MD Narrative 10/11/2020 2:57 PM SERGING MACHINE OPERATOR EXAMINATION: SCREENING MAMMOGRAM BILATERAL W MAURILIO ORDERING [...] There has been no suspicious interval change. us Self Screening Mammogram IMG MAMMO PROCEDURES Fi nal Result * Serum Hepatitis C ab (10/22/2016 1:35 PM SERGING MACHINE OPERATOR) HCV ab Negative Negative CDR HISTOR ICAL RESULTS Serum 10/22/2016 1:35 PM SERGING MACHINE OPERATOR Luana Talbert MD LAB BLOOD ORDERABLES Final [...] Health Maintenance Insurance MEDICARE TEAMSTERS MEDICARE TRUST [facility] AETNA [facility] [id number] [facility] [employer] Address: [address] [place] [phone] MEDICARE TEAMSTERS MEDICARE TRUST Care Teams Development Planner Relationship Specialty Start Date End Date Lauri Menchaca DO PCP - General Internal Medicine 01/21/22
--- OUTSIDE RECORDS SUMMARY | 2025-03-12 01:28 | XMS_ITS | Encounter Summary ---
Author Organization [facility] Address [address] [place] [address] Care Team Providers Care Senior Policy Associate Name Role Phone Unavailable Primary Care Provider Unavailabl e Encounter Details Date Type Department Care Team (Late st Contact Info) Description 03/04/2023 Lab Requisition [facility] - DermPath Lab [address] [place] [address] Yolis Franco DO [address] [address] [place] [address] Social History Tobacco Use Types Packs/Day Years [...] PM CDT) Case Report Dermatopathology Report Case: [id number] Authorizing Provider: Yolis Franco DO Collected: 03/04/2023 02:52 PM Ordering Location: [facility] DermPath Lab Received: 03/05/2023 01:39 PM Pathologist: Shira Patel MD Specimens: A) - Skin, right back B) - Skin, right thigh 1:46 PM CDT DERMATOPATHOLOGY LABORATORY Final Diagnosis Specimen A. SKIN, right back: BASAL CELL CARCINOMA, INFILTRATIVE PATTERN (C44.519) Specimen B. SKIN, right thigh: LARGE CELL ACANTHOMA (D23.9) (see microscopic description) 3 1:46 PM CDT DERMATOPATHOLOGY LABORATORY at 1346 CDT Clinical History A) : R/O BCC B) [...] specimen consists of a shave biopsy measuring 79c74q6 mm. Jar 0. 3 1:46 PM CDT DERMATOPATHOLOGY LABORATORY Microscopic Description [...] periodicity of melanocytes along the dermoepidermal junction. 3 1:46 PM CDT DERMATOPATHOLOGY LABORATORY Disclaimer An external and internal positive and negative controls are appropriate for the histochemical, immunohistochemical and immunofluorescence stain(s) in this case (if any), except where stated explicitly. The performance characteristics of the stain(s) cited in this report were developed and its performance characteristic determined by the Dermatopathology Laboratory at [facility], directed by Dr. Emilee De León. These tests need not be, and therefore are not, approved by the [place] Food and Drug Administration. The tests are used for clinical purposes. Billing Codes Specimen Charges Stain Charges 47691 36872 1 1 48625 1 3 1:46 PM CDT DERMATOPATHOLOGY LABORATORY Embedded Images 3 1:46 PM CDT DERMATOPATHOLOGY LABORATORY Pathology/Cytology TISSUE SPECIMEN FROM SKIN / Unknown 03/04/2023 2:52 PM CDT 03/05/2023 1:39 PM CDT Miscellaneous samples (specimen) TISSUE SPECIMEN FROM SKIN / Unknown 03/04/2023 2:52 PM CDT 03/05/2023 1:39 PM CDT us Yolis Franco DO LAB - PATHOLOGY/CYTOLOGY ORDERABLES Final Result DERMATOPATHOLOGY LABORATORY [facility] - Department of Dermatology [facility] Medicine [address] [place] [address], [address] Floor [address] [phone] documented in this encounter Visit Diagnoses Not on filedocumented in this encounter
--- OUTSIDE RECORDS SUMMARY | 2025-03-12 01:28 | XMS_ITS | Clinical Summary ---
Author Organization [facility] Address [address] [place] [address] Care Team Providers Care Rodding Anode Worker Name Role Phone Unavailable Primary Care Provider Unavailabl e Source Comments [facility],non-owned Affiliates and Associated Physician Practices is amultiple site organization consisting of ambulatory clinics and hospital sitesin [place], [place], [place] and [place]. This disclosure is being madepursuant to the Care Everywhere program and may not contain all information available regarding this patient. Last updated 18.[facility] Clear Social History Tobacco Use Types Packs/Day Years [...] VACCINE (1 of 2) 2006 COVID-19 VACCINE (1 - 2023-2 5 season) 2024 DEPRESSION SCREENING 08/23/2024 INFLUENZA VACCINE (#1) 2025 Respiratory Syncytial Virus (RSV) Vaccine Pt: [...] on patient's age to complete this topic Insurance [facility] MEDICARE MEDICARE SUPPLEMENT PAYOR GENERIC
--- OUTSIDE RECORDS SUMMARY | 2025-03-12 01:28 | XMS_ITS | Referral Summary ---
Author Organization [facility] Address [address] [place] [address] Care Team Providers Care Calibration Checker Name Role Phone Lauri Menchaca DO Primary Care Provider +1- [phone] Allergies Active Allergy Reactions Criticality Noted Date [...] (11/25/2018): Added automatically from request for surgery [id number] Preoperative cardiovascular examination 11/18/19 19 Assessment & [...] (11/10/2017): Added automatically from request for surgery [id number] PSVT (paroxysmal supraventricular tachycardia) ( [facility]) 04/13/2017 Assessment & Plan (11/17/2018 9:53 [...] (11/25/2018): Added automatically from request for surgery [id number] Impingement syndrome of right shoulder 11/25/2018 11/02/2019 Overview (11/25/2018): Added automatically from request for surgery [id number] Biceps tendinitis of right upper extremity 11/25/2018 11/02/2019 Overview (11/25/2018): Added automatically from request for surgery [id number] Osteoarthritis of right AC (acromioclavicular) joint 11/17/2018 [...] on file Legal Sex Female 11:53 PM RETAIL ASSOCIATE MANAGER BILINGUAL Gender Identity Female 12/06/2018 9:17 AM CDT [...] on file Medical Devices Implanted Type Area Campaign Specialist Device Identifier Shelf Expiration Date Model / Serial / Lot Mesh Surgical Progrip Polyester Rectangle L15 Cm X W9 Cm Self Hand Sprayer Hernia - [id number] Implanted:Qty: 1 on 11/12/2017 by Kevan oHffman MD at [facility] [employer] 01/20/2022 [id number] / / [id number] Patel & Nephew 2169-3 Reconstitute Scaffold Large Mesh Surgical Collagen Sterile Latex - [id number] Implanted:Qty: 1 on 11/29/2018 by Angel Campbell MD at [facility] Right: Shoulder [employer] Nephew 08/22/2021 2169-3 / / [id number] Patel & Nephew 2504-1 Regenerate Tendon [place] Suture - [id number] Implanted:Qty: 1 on 11/29/2018 by Angel Campbell MD at [facility] Right: Shoulder [employer]hew 08/30/2019 2504-1 / / [id number] Patel [employer] Nephew 2503-A Arthroscopic Delivery System [place] Suture Sterile Disposable - [id number] Implanted:Qty: 1 on 11/29/2018 by Angel Campbell MD at [facility] Right: Shoulder [employer] Nephew 07/19/2019 2503-A / / [id number] Depuy Mitek [id number] Healix Advance Br Orthocord 4.5mm 3 [place] Suture Sterile Latex Free - [id number] Implanted:Qty: 1 on 11/29/2018 by Angel Campbell MD at [facility] Right: Shoulder Depuy Mitek 08/22/2020 [id number] / / [id number] Arthrex Inc Ar-2324bcc Swivelock C 4.75mm 19.1mm Closed Eyelet Vent [place] Suture - [id number] Implanted:Qty: 1 on 11/29/2018 by Angel Campbell MD at [facility] Right: Shoulder Ar[employer] Inc 09/22/2019 AR-2324BC C / / [id number] Procedures Procedure Name Priority Date/Time Associated Diagnosis Comments SCREENING MAMMOGRAM BILATERAL W MAURILIO Schedule Routine, Read Routine (OP Routine) 10/11/2020 1:14 PM RETAIL ASSOCIATE MANAGER BILINGUAL Encounter for screening mammogram for malignant neoplasm of breast SERUM HEPATITIS C AB Routine 10/22/2016 1:35 PM RETAIL ASSOCIATE MANAGER BILINGUAL COLONOSCOPY IMAGES 05/12/2016 HM DEXA SCAN Routine 11/29/2015 from Last 3 Months or Most Recently Relevant to Health Maintenance Results * Screening Mammogram Bilateral W Maurilio (10/11/2020 1:14 PM RETAIL ASSOCIATE MANAGER BILINGUAL) Anatomical Region Laterality Modality Breast Bilateral Mammography 10/11/2020 2:55 PM RETAIL ASSOCIATE MANAGER BILINGUAL Impressions 10/11/2020 2:57 PM RETAIL ASSOCIATE MANAGER BILINGUAL There is no mammographic evidence of malignancy. A 1 year screening mammogram is recommended. BI-RADS: 1 - Negative. The patient will be entered into a reminder system with a target due date of 1 year for her next mammogram. Electronically signed by: Rajwinder Dhillon MD Narrative 10/11/2020 2:57 PM RETAIL ASSOCIATE MANAGER BILINGUAL EXAMINATION: SCREENING MAMMOGRAM BILATERAL W MAURILIO ORDERING [...] Serum Hepatitis C ab (10/22/2016 1:35 PM RETAIL ASSOCIATE MANAGER BILINGUAL) HCV ab Negative Negative CDR HISTOR ICAL RESULTS Serum 10/22/2016 1:35 PM RETAIL ASSOCIATE MANAGER BILINGUAL Luana Talbert MD LAB BLOOD ORDERABLES Final [...] Health Maintenance Insurance MEDICARE TEAMSTERS MEDICARE TRUST [facility] AETNA SIG [id number] [employer] [facility] [employer]PL[employer]EE HEALTH PLANS Address: [address] [place] [address] MEDICARE TEAMSTERS MEDICARE TRUST Care Teams Calibration Checker Relationship Specialty Start Date End Date Lauri Menchaca DO PCP - General Internal Medicine 01/21/22
[2025-03-12] MEDS: LACTATED RINGERS 1,000 ML 30 ML IV CONT ×3 (11:00→15:12)
[2025-03-12] MEDS: ACETAMINOPHEN 500 MG TABLET 1000 MG PO (11:08)
--- NOTE | 2025-03-12 11:24 | WPDANESEPPF ---
Anes - Initial Pre Proc Eval Procedure: Operation Date: 03/12/25 12:00 Proposed Procedures p Left Custom Total Knee Arthroplasty - Yuniel Sommers MD Date/Time: 03/12/25 11:24 Surgeon: Yuniel Sommers MD Pre Op Diagnosis: Prim OA Lt Knee Patient Data Age: 69 Gender: F Height: 1.7 m Weight: 84.6 kg Last Vital Signs Temp 98.7 F 02/14/25 13:48 Pulse 52 L 02/14/25 13:48 Resp 14 02/14/25 13:48 BP 125/53 L 02/14/25 13:48 Pulse Ox 100 02/14/25 13:48 O2 Del Method Room Air 02/14/25 13:48 Allergies Allergy/AdvReac Type Severity Reaction Status Date / Time adhesive tape Allergy Severe Unknown Verified 02/14/25 13:46 bacitracin (From Neosporin Allergy Severe Rash Verified 02/14/25 13:46 ([id number]-key-rbexr)) iodine povacrylex (From Allergy Severe Unknown Verified 02/14/25 13:46 DuraPrep) isopropyl alcohol (From Allergy Severe Unknown Verified 02/14/25 13:46 DuraPrep) neomycin (From Neosporin Allergy Severe Unknown Verified 02/14/25 13:46 (qdo-ldf-ehobk)) polymyxin B (From Neosporin Allergy Intermediate blisters Verified 02/14/25 13:46 (kcr-ijm-yaijk)) chloraprep Allergy Unknown Blister Uncoded 02/14/25 13:46 Home Medications ?Medication ?Instructions ?Recorded ?Confirmed ?Type diltiazem HCl 180 mg capsule,24 180 mg PO DAILY #90 caps 06/24/21 02/14/25 Rx hr,extended release atenolol 25 mg tablet See Rx Instructions .Route 08/12/22 02/14/25 Rx .COMPLEX #90 tabs calcium 600 mg (as 1 tablet PO BID 04/17/24 02/14/25 History carbonate)-vitamin D3 20 mcg (800 unit) tablet alendronate 70 mg tablet (Fosamax) 70 mg PO WEEKLY #12 tabs 07/24/24 02/14/25 Rx Patient hx anesthesia problems: none Family hx anesthesia problems: none Results Review: All pre-operative results and documents have been reviewed as part of the pre-operative evaluation. [facility] Past Medical History Medical History History of stress test Prior to 2009 Bicuspid aortic valve History of cardiac arrhythmia Migraine Chronic GERD Allergies Surgical History Surgical History History of conization of cervix History of LAVH (~1994) History of hernia repair (~2017) H/O repair of right rotator cuff (~2018) Family History Family History Sibling Family history of blood dyscrasia Father Family history of malignant neoplasm Tremor Grandparent Tremor Social History Social History Smoking status: Never smoker Alcohol intake: never Substance use: never Substance use type: does not use Do You Feel Safe in your Home?: Yes Lack of Transportation: No Lack of Food: Never True Current Housing: I Have Housing Concerned About Future Housing: No Difficulty Paying Gas/Electric Bills: No Difficulty Paying for Meds: No Currently Unemployed: No Education: Associate Degree Difficulty w/ Childcare or Family Care: No Living arrangements: with family Additional living arrangements comments: Occupation/Education: occupation Additional occupation/education comments: Staff Nurse at [employer] Gender identity (if verbalized by the patient): Female Spiritual care concerns: No Anes - Eval Final PreProcedure Day of Procedure 03/12/25 11:24 Patient weight: normal Heart: regular rate and rhythm Lungs: clear to auscultation Airway: Mallampati scale class III Neurological: alert and oriented Last oral intake: >/= 8 hours ASA classification: III Emergent: no Anesthetic plan: proceed Anesthesia type and monitoring: general LMA and standard monitoring Results Review: All pre-operative results and documents have been reviewed as part of the pre-operative evaluation. Informed Consent: The patient's anesthetic plan and its attendant risks and benefits were discussed with the patient/family/POA. Questions were solicited and answers provided to the satisfaction of the patient/family/POA.
[2025-03-12] MEDS: ceFAZolin 2 GM in SODIUM CHLORIDE 0.9% IV 50 ML 100 ML IVPB (12:13)
[2025-03-12] MEDS: TRANEXAMIC ACID 1,000MG/ISO100 1,000 MG/100 ML BAG 200 MG IVPB (12:13)
--- NOTE | 2025-03-12 12:16 | WPDHPUPDATE1 ---
History and Physical Update Update Date/Time: 03/12/25 12:16 History and Physical has been reviewed, including an updated exam of the patient. There are NO changes in the patient's condition. Risks, benefits, and alternatives have been discussed and questions answered. Patient agrees to proceed with procedure.
[2025-03-12] MEDS: SODIUM CHLORIDE 0.9% IV 38.7 ML, MORPHINE SULFATE INJ (*CRX) 2 MG, ROPivacaine HCL 1% 2... INFILTRATE (12:47)
[2025-03-12] MEDS: GENTAMICIN BONE CEMENT REFOBACIN 1 EACH TOPICAL (13:43)
[2025-03-12] MEDS: TRANEXAMIC ACID 1,000 MG/10 ML AMPUL 1000 MG IV PUSH (14:23)
[2025-03-12] MEDS: HYDROmorphone HCL INJ (*CRX) 1 MG/ML SYR 0.5 MG IV PUSH ×2 (14:45→14:53)
[2025-03-12] MEDS: fentaNYL CITRATE INJ (*CRX) 100 MCG/2 ML VIAL 25 MCG IV PUSH ×7 (14:59→16:20)
--- NOTE | 2025-03-12 15:18 | WPDANESPNB ---
Anes - Peripheral Nerve Block Date/Time: 03/12/25 15:18 I have discussed with the patient/family/POA the placement of a peripheral nerve block for post-operative pain management, including associated risks, benefits, complications, and side effects. Alternative methods of post-operative analgesia were detailed. Questions were solicited and answers provided to the satisfaction of the patient/family/POA. Time-Out: A pre-procedural Time-Out was completed immediately before starting the procedure and confirmed: Patient Identification, Site, Procedure, Patient Position and the Availability of Requisite Equipment. Clinical Indications: Acute post-operative pain management requested by the operative surgeon. Nerve Block Insertion Note Anes-nerve block: femoral left Patient position: supine Skin prep: chlorhexidine Needle: 22 gauge, stimulating, insulated echogenic needle. Needle length: 50 mm Technique: nerve stimulation lost at (mA) (0.3) Technique comment: done in pacu no sedation Injectate: bupivacaine 0.25% with epi 5 mcg/ml (20ml no epi) Observations: tolerated well Complications: none Procedure start time:: 1511 Procedure end time:: 1515
--- NOTE | 2025-03-12 16:28 | P.OP_ITS ---
Procedure Note - Detailed Date of Procedure 03/12/25 Pre-op Diagnosis Left knee degenerative arthritis. Post-op Diagnosis Same Procedure Performed Custom total knee arthroplasty, left. Surgeon Yuniel Sommers MD Anesthesia General Findings Moderate to severe tricompartmental disease. Bone resections according to the preoperative plan. Optimal fit of the custom implant. No ligament releases. PCL intact. Description of Procedure Preoperative antibiotics were given. The limb was prepped and draped in the usual sterile fashion with a well-padded tourniquet high on the thigh. The limb was exsanguinated and the tourniquet inflated to 300 mmHg during exposure and cementation. A longitudinal incision was created just medial to the patella. A trivector approach to the knee was performed. Arthrotomy was taken down through the joint capsule. No significant releases were initially taken. The femur was exposed and the F1 jig was applied. The coring tool was used to remove the cartilage for the F2 jig to sit flush with the bone. The jig was pinned and the distal cut carefully taken. Caliper measurements confirmed appropriate bony resections according to the preoperative templated plan. The F4 cutting jig for the femur was applied, at the standard rotation. The AP and anterior chamfer cuts were taken. The F5 jig was applied and the posterior chamfer cuts were taken. The tibia was prepared using the T1 jig, after removing cartilage for the jig contact points. Proper alignment was checked with the alignment elena. The tibia was cut using the T1u guide. Gap balancing was performed. Gap measurements were taken and the knee was trialed. Excellent alignment and soft tissue balancing was confirmed. The posterior cruciate ligament was recessed along the proximal tibia. The patella was cut for resurfacing. Three lug holes were drilled. Meniscal remnants were removed. The trial components were assembled. Excellent range of motion and proper soft tissue balancing were confirmed throughout the full range of motion. Patellar tracking was excellent. The knee was copiously irrigated periodically throughout the procedure. The real implants were cemented into position. Excess cement was carefully removed. The wound was estuardo sed in layers with interrupted #1 Vicryl suture, 2-0 strata fix suture, 0 strata fix suture, 2-0 strata fix suture. Steri-Strips placed on the skin with the knee flexed. Sterile bulky dressing applied. The patient was brought to the recovery room in stable condition. There were no complications. Implants Conformis Custom total knee arthroplasty. Cemented. Cruciate retaining. 7A insert. 32 mm round patella. Estimated Blood Loss 300 Drains No Complications No immediate complications Condition Stable Disposition PACU [facility] Billing Surgery - Charge Forward: Surgery Billing
[2025-03-12] MEDS: ONDANSETRON INJ 4 MG/2 ML VIAL IV PUSH ×2 (16:55→20:48)
[2025-03-12] MEDS: ASPIRIN 81 MG ENTERIC TABLET PO (17:15)
[2025-03-12] MEDS: SODIUM CHLORIDE 0.9% IV 1,000 ML 125 ML IV CONT (17:15)
[2025-03-12] MEDS: SENNA/DOCUSATE SODIUM TABLET 2 TAB PO (17:15)
[2025-03-12] MEDS: MELOXICAM 7.5 MG TABLET PO (17:15)
[2025-03-12] MEDS: ACETAMINOPHEN 500 MG TABLET PO (18:01)
--- NOTE | 2025-03-12 18:26 | ADMGEN ---
This patient, Joanna Magdaleno, was admitted to [facility] Surg Room 327-01. Patient/family oriented to hospital policies and general routines including ID bracelet, bed and alarms, visiting hours, pain management, procedures, bathroom and other care routines, personal items, smoking policy, room service/diet, and visiting hours. Information on how to activate the Rapid Response Team has been discussed. Patient/Family are encouraged to report perceived risks to care and to ask questions if they do not understand what they are told or what they should do.
[2025-03-12] MEDS: ceFAZolin 2 GM/D5W 50 ML 2 GM/50 ML BAG IVPB (20:08)
[2025-03-13] MEDS: ACETAMINOPHEN 500 MG TABLET PO ×2 (00:54→07:19)
[2025-03-13] MEDS: ONDANSETRON INJ 4 MG/2 ML VIAL IV PUSH ×2 (00:55→04:39)
[2025-03-13 02:12] VITALS: BP 132/58; PULSE 68; RESP 18; TEMP 36.3; O2SAT 100
[2025-03-13] MEDS: ceFAZolin 2 GM/D5W 50 ML 2 GM/50 ML BAG IVPB (04:43)
[2025-03-13 04:55] VITALS: BP 127/50; PULSE 77; RESP 18; TEMP 36.2; O2SAT 96
[2025-03-13 05:40] LABS: Hematocrit 37.4 % (37.0-47.0); Hemoglobin 12.0 g/dL (12.0-15.0); Immature Granulocyte Percent A 0.3 % (0-0.5); Lymphocytes Absolute Auto 0.79 K/mm3 (0.9-3.2); Mean Corpuscular HGB Conc 32.1 g/dl (32-36); Mean Corpuscular Hemoglobin 30.6 pg (26-34); Mean Corpuscular Volume 95.4 fl (80-100); Nucleated Red Blood Cells Absolute Auto 0.000 K/mm3 (0.0-0.012); Nucleated Red Blood Cells Perc 0.0 % (0.0-0.2); Platelet Count Result 237 k/mm3 (150-375); Red Blood Count 3.92 M/mm3 (4.2-5.4); White Blood Count 9.6 K/mm3 (4.5-10.0)
[2025-03-13 06:04] LABS: Anion Gap 8 mmol/L (4-12); Blood Urea Nitrogen 10 mg/dL (7-17); Calcium 9.0 mg/dL (8.4-10.2); Carbon Dioxide 21 mmol/L (22-30); Chloride 108 mmol/L (98-107); Estimated CRCL calculation 69 ml/min; Estimated Glomerular Filt Rate > 60; Glucose 138 mg/dL (65-110); Potassium 4.2 mmol/L (3.4-5.0); Sodium 137 mmol/L (137-145)
[2025-03-13 08:16] VITALS: BP 132/56; PULSE 77; RESP 18; TEMP 36.9; O2SAT 98
[2025-03-13 08:44] VITALS: PULSE 79
[2025-03-13] MEDS: ASPIRIN 81 MG ENTERIC TABLET PO (08:45)
[2025-03-13] MEDS: dilTIAZem HCL CD 180 MG CAP.24HR PO (08:46)
[2025-03-13] MEDS: CALCIUM/VITAMIN D 500 MG/5 MCG (200 I.U.) TABLET PO (08:46)
[2025-03-13] MEDS: MELOXICAM 7.5 MG TABLET PO (08:53)
== END 2025-03-13 11:45 | disposition home or self-care (01) ==
LOC: ANHSURGERY 09:56 → ANH3MEDSUR 16:30
PROVIDERS: PCP Internal Medicine; Visit Provider Orthopaedic Surgery
PROC: (CPT 27447; principal; 2025-03-12 12:00)
DX: M17.12 Unilateral primary osteoarthritis, left knee (principal); G89.18 Other acute postprocedural pain; Q23.81 Bicuspid aortic valve; K21.9 Gastro-esophageal reflux disease without esophagitis; Z79.899 Other long term (current) drug therapy
CPT/HCPCS: 27447; 64447; 36415; 73560; 80048; 85025; 86850; 86900; 86901; 97110; 97161; 97165; J0690; A9270; C1713; C1776; J0166; J1100; J1171; J2003; J2270; J2405; J2704; J2795; J3010; J7030; J7120; J7512